=== PATIENT | female | born 1970 | race Caucasian/White ===

== ENCOUNTER 2021-02-26 08:26 | Outpatient (REF) | payer BC, SELFPAY ==
[2021-02-26 11:56] LABS: Hemoglobin 11.6 g/dl (12.0-16.0); Mean Corpuscular HGB Conc 32.2 g/dl (31.0-35.0); Mean Corpuscular Hemoglobin 29.8 pg (27.0-33.0); Mean Corpuscular Volume 92.5 fL (80-98); Mean Platelet Volume 9.3 fL (9.4-12.3); Platelet Count 342 X10*3/uL (160-400); Red Blood Count 3.89 X10*6/uL (4.20-5.50); Red Cell Distribution Width 12.9 % (11.0-16.0); White Blood Count 7.8 X10*3/uL (4.8-10.8)
[2021-02-26 12:42] LABS: Anion Gap 11 (12-20); Blood Urea Nitrogen 13 mg/dL (9-16); Carbon Dioxide 30 mmol/L (22-29); Chloride 101 mmol/L (96-108); Estimated Glomerular Filt Rate > 60; Glucose Random 86 mg/dL (60-115); Potassium 4.4 mmol/L (3.3-5.1); Sodium 138 mmol/L (135-145)
== END 2021-02-26 08:27 | disposition home or self-care (01) ==
LOC: HO.HMGCLDS 08:26
PROVIDERS: PCP Internal Medicine; Visit Provider Internal Medicine
DX: Z00.00 Encounter for general adult medical examination without abnormal findings (principal)
CPT/HCPCS: 36415; 80048; 85027

== ENCOUNTER → 2021-03-19 12:57 | Outpatient (REF) | payer BC, SELFPAY ==
--- NOTE | 2021-03-19 13:01 | ECG_ITS ---
Hook-up date: 2021-03-19 13:11:00 Duration: 47:59:00 Test Indications: PALPITATIONS Medications: [id number] QRS complexes * Ventricular ectopics which represent % of total QRS comp. 2 Supraventricular ectopics which represent <1 % of total QRS comp. * Paced QRS complexs which represent % of total QRS comp. VENTRICULAR ECTOPY * Isolated * Bigeminal Cycles * Couplets * Runs * Beats in Runs * Beats LONGEST at * BPM at :: -- * Beats FASTEST at * BPM at :: -- SUPRAVENTRICULAR ECTOPY 2 Isolated 0 Couplets 0 Runs 0 Beats in Runs * Beats LONGEST at * BPM at :: -- * Beats FASTEST at * BPM at :: -- HEART RATES 61 MIN at 03:24:13 2021-03-20 88 AVG 143 MAX at 10:06:31 2021-03-20 LONGEST RR 1.0000 secs at 03:24:14 2021-03-20 S-T LEVELS Channel 1 - 128 mm at 13:11:00 2021-03-19 - 128 mm at 13:11:00 2021-03-19 Channel 2 - 128 mm at 13:11:00 2021-03-19 - 128 mm at 13:11:00 2021-03-19 Channel 3 - 128 mm at 03:23:01 -- - 128 mm at 03:23:01 Underlying rhythm is sinus; Average ventricular rate 88/min; range 61-143/min; About 28% of the time, rate>100/min (sinus tachycardia); No significant arrhythmias; Patient did not report any symptoms in the diary Referred By: Mariangel White Overread By: JAY VELASQUEZ
== END ==
LOC: HO.CARD 12:57
PROVIDERS: PCP Internal Medicine; Visit Provider Internal Medicine
DX: R00.2 Palpitations (principal)
CPT/HCPCS: 93225; 93226

== ENCOUNTER → 2022-11-03 09:15 | Outpatient (BNVA) | payer BC, SELFPAY | PROVIDERS: PCP Physician Assistant Medical; Visit Provider Hospitalist ==

== ENCOUNTER 2023-03-30 08:19 | Outpatient (REF) | payer BC, SELFPAY ==
--- NOTE | 2023-03-30 09:01 | PFT_ITS ---
Forced vital capacity 85%, FEV1 89%, FEV1/FVC ratio is 82. KHO08-10 104%, and MVV is 81%. Post bronchodilator therapy there is actually much decrease in the flow volumes. Total lung capacity 87%. Residual volume 100%. Diffusion capacity 84% CONCLUSION: Baseline test shows normal spirometry, and there is no evidence of any obstructive airway disorder. Lung volumes are also normal and diffusion capacity is normal. There is a negative response to bronchodilator therapy. This needs to be correlated with clinical picture. MD WILMER Campbell/MODSrinivas / [phone]
== END 2023-03-30 08:20 | disposition home or self-care (01) ==
LOC: HO.RESP 08:19
PROVIDERS: PCP Physician Assistant Medical; Visit Provider Hospitalist
DX: R91.8 Other nonspecific abnormal finding of lung field (principal)
CPT/HCPCS: 94010; 94727; 94729

== ENCOUNTER → 2023-03-30 09:01 | Outpatient (BNV) | payer BC, SELFPAY | PROVIDERS: PCP Physician Assistant Medical; Visit Provider Internal Medicine | DX: R91.8 Other nonspecific abnormal finding of lung field (principal) | CPT/HCPCS: 94060; 94727; 94729 ==

== ENCOUNTER 2023-04-17 14:02 | Outpatient (AMB) | payer BC, SELFPAY ==
[2023-04-17 14:02] VITALS: BMI 23.5
--- NOTE | 2023-04-17 14:02 | MHC.OFFVIS ---
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 After COVID she started developing worsening respiratory symptoms with chest tightness and cough. She had imaging studies at some point demonstrating evidence of peribronchial coughing and bronchitis. The patient recovered from that in and then again in January 2022 she developed COVID again. Similar symptoms occurred. She started using inhalers. Then, in July 2022 the patient developed another upper respiratory illness although was not COVID. Resulting increasing chest tightness having to use inhalers. She did have imaging studies at [facility] initially demonstrating hazy nodular opacity. I personally reviewed that image. She then had a CT scan of the chest done demonstrating calcified pulmonary nodules consistent with granulomas about 5 mm in size. No evidence of any peribronchial coughing a bronchitis or any other changes based on the report. I did request that she can bring me a copy of the CD so I can not review the images. In view of the size of the nodules is more appropriate for her to get a CT scan follow-up in a year's time. She she does have allergy symptoms including postnasal drip and likely has atopy with allergic rhinitis, eczema and likely mild intermittent asthma. The patient does have a rescue inhaler. She does not need any maintenance therapies right now. She is already did not Singulair although she has been taking it regularly and she has also continue with her nasal therapy. Therefore she can continue with her current therapies will follow-up in the fall with PFTs. Hopefully have looked at her images by then and will decide if she needs a CT scan in the fall or if he can not wait to the spring. 04/17/2023 the patient has a telehealth visit today. Overall the patient is doing better. Her allergies have subsided and she is been able to deescalate her respiratory and allergy medicines. She did take a trip to [place] over the summer and she did have some increased respiratory symptoms while dealing with a viral syndrome. She is still having some GI sequela symptoms. She did not test to see if she had COVID. We did review her pulmonary function studies. It appears that her post bronchodilator numbers are significantly worse. Will go ahead and repeat that based on the fact that it does not go along with her history. In regards of her CT scan the patient does have a small 5 mm pulmonary nodule that will require a follow-up in August. will follow-up with her after that CT scan to review together. Otherwise, the patient can always call if any new issues arise. [facility] Medical History (Updated 04/17/23 @ 22:00 by Jayant Owusu MD) Chronic allergic rhinitis Pulmonary nodules Atopy Reactive airway disease Hallux limitus of left foot Palpitations Mammogram normal Normal Pap smear Vitamin D deficiency Liver mass Chronic pelvic pain in female Chronic anxiety Annual physical exam Surgical History H/O colonoscopy Family History Father No problems noted. Mother No problems noted. Social History Housing: House Alcohol intake: current Alcohol intake frequency: holidays/special occasions only Patient Tobacco Use Status: Never used Tobacco e-Cigarette/Vaping Use: Never Used Second Hand Smoke Exposure: No service: No Current occupational status: unemployed Review of Systems Const Denies fatigue and Denies fever(s) Eyes Reports no additional complaints ENT Denies nasal congestion, Denies nasal discharge and Denies post nasal drip Card Denies chest pain Resp Reports cough and Denies wheezing GI Reports no additional complaints Musc Reports no additional complaints Skin/Breast Reports rash Neuro Reports no additional complaints Endo Denies fatigue Jameson/Lymph Denies lymphadenopathy Aller/Immun Denies wheezing Physical Exam Vital Signs: BMI result Body Mass Index 23.5 Const General: comfortable Orientation/consciousness: patient oriented x3 Resp Effort & Inspection: able to speak in complete sentences Neuro General: patient oriented x3 Assessment & Plan Assessment & Plan (1) Reactive airway disease: Code(s): J45.909 - Unspecified asthma, uncomplicated Qualifiers: Asthma severity: mild Asthma persistence: intermittent Asthma complication type: uncomplicated Qualified Code(s): J45.20 - Mild intermittent asthma, uncomplicated (2) Atopy: Code(s): Z88.9 - Allergy status to unspecified drugs, medicaments and biological substances (3) Pulmonary nodules: Code(s): R91.8 - Other nonspecific abnormal finding of lung field (4) Chronic allergic rhinitis: Code(s): J30.9 - Allergic rhinitis, unspecified Plan RUBIO as needed fluticasone nasal spray AM Neti bottle PM as needed Zyrtec as needed Singulair PM seasonally PFTs, will repeat spirometry CT chest 09/2023 F/U 09/2023 Telehealth Telehealth Location of provider rendering services: practice address Location of patient: address on file Patient Identification confirmed using: Name, : Yes Telehealth method: voice only Patient verbally consented to treatment: Yes Patient verbally consented to billing insurance company: Yes Patient informed of any privacy concerns related to visit: Yes Coding Level of Care Code Tele Est Pt Level 4 (39874) Diagnoses Mild intermittent reactive airway disease without complication J45.20 Asthma severity: mild Asthma persistence: intermittent Asthma complication type: uncomplicated Atopy Z88.9 Pulmonary nodules R91.8 Chronic allergic rhinitis J30.9 Time Spent (min) 15
== END 2023-04-17 14:33 | disposition home or self-care (01) ==
LOC: HO.HPS 14:02
PROVIDERS: PCP Physician Assistant Medical; Visit Provider Hospitalist
DX: J45.20 Mild intermittent asthma, uncomplicated (principal); Z88.9 Allergy status to unspecified drugs, medicaments and biological substances; R91.8 Other nonspecific abnormal finding of lung field
CPT/HCPCS: 99442

== ENCOUNTER → 2023-04-17 14:02 | Outpatient (BNVA) | payer BC, SELFPAY | PROVIDERS: PCP Physician Assistant Medical; Visit Provider Hospitalist ==

== ENCOUNTER 2023-08-28 07:21 | Outpatient (REF) | payer BC, SELFPAY ==
--- NOTE | ~2023-08-28 | CT_ITS ---
EXAMINATION: CT CHEST WITHOUT CONTRAST CLINICAL INFORMATION: Pulmonary nodule. COMPARISON: Chest x-ray 01/08/2020. TECHNIQUE: Multidetector volumetric CT imaging of the chest was done. Axial MIP volume rendering provided. Sagittal and coronal reformatted images were obtained. This CT examination was performed using dose optimization techniques as appropriate, variously including the following: *Automated exposure control *Adjustment of mA and/or kV according to patient size (this includes techniques or standardized protocols for targeted exams where dose is matched to indication/reason for exam; i.e. extremities or head) *Use of iterative reconstruction technique DLP: 133 mGy-cm FINDINGS: PERIODONTAL ASSISTANT: Well-expanded lungs. LUNGS: The lungs are well expanded and clear of acute pneumonic process. There is a calcified 2 mm nodule left lower lobe axial image 30/4, punctate 1 mm calcified nodules right lower lobe axial image 287/5, noncalcified 4 mm nodule left lower lobe axial image 365/5, 4 mm nodule right upper lobe axial image 144/5. MEDIASTINUM: The thyroid lobes are symmetric and normal. The central trachea and the bronchi are widely patent. The heart size and great vessels are normal caliber. CORONARY ARTERY CALCIFICATION: None visualized on this study. PLEURA: There is no pleural effusion. No pleural mass or thickening. AXILLA: No lymphadenopathy. UPPER ABDOMEN: Visualized liver, spleen, pancreas, and bilateral adrenal glands are unremarkable OSSEOUS STRUCTURES: No aggressive lytic or sclerotic process seen. There is mild ventral spondylosis mid and lower dorsal spine. CT/CT chest wo IV con IMPRESSION: 1. Multiple calcified and noncalcified pulmonary nodules. The two 4 mm pulmonary nodules in the right upper lobe and left lower lobe are stable. No new pulmonary nodules seen. 2. No abnormal mediastinal or axillary lymphadenopathy seen. 3. No acute consolidation or mass seen. Fleischner guidelines were followed.
== END 2023-08-28 07:22 | disposition home or self-care (01) ==
LOC: HO.CT 07:21
PROVIDERS: PCP Physician Assistant Medical; Visit Provider Hospitalist
DX: R91.8 Other nonspecific abnormal finding of lung field (principal)
CPT/HCPCS: 71250

== ENCOUNTER 2023-09-18 14:03 | Outpatient (AMB) | payer BC, SELFPAY ==
[2023-09-18 14:38] VITALS: PULSE 84; O2SAT 98; BMI 25.1
--- NOTE | 2023-09-18 14:38 | MHC.OFFVIS ---
Intake Vital Signs 09/18/23 14:38 Height 5 ft 4 in Weight 146 lb BMI 25.1 Pulse 84 Pulse Source Pulse Oximeter Pulse Oximetry (%) 98 Oxygen Delivery Method Room Air Intake Visit Reasons: Pulmonary Nodule Follow Up Import And Export Clerk Required: No Allergies amoxicillin [Augmentin] Allergy (Unknown, Verified 09/18/23 14:39) rash clavulanic acid [Augmentin] Allergy (Unknown, Verified 09/18/23 14:39) rash HPI HPI Comments History of Present Illness Details The patient is a 53 year woman previously healthy until back in 2019 she developed COVID-19. After COVID she started developing worsening respiratory symptoms with chest tightness and cough. She had imaging studies at some point demonstrating evidence of peribronchial coughing and bronchitis. The patient recovered from that in and then again in January 2022 she developed COVID again. Similar symptoms occurred. She started using inhalers. Then, in July 2022 the patient developed another upper respiratory illness although was not COVID. Resulting increasing chest tightness having to use inhalers. She did have imaging studies at [facility] initially demonstrating hazy nodular opacity. I personally reviewed that image. She then had a CT scan of the chest done demonstrating calcified pulmonary nodules consistent with granulomas about 5 mm in size. No evidence of any peribronchial coughing a bronchitis or any other changes based on the report. I did request that she can bring me a copy of the CD so I can not review the images. In view of the size of the nodules is more appropriate for her to get a CT scan follow-up in a year's time. She she does have allergy symptoms including postnasal drip and likely has atopy with allergic rhinitis, eczema and likely mild intermittent asthma. The patient does have a rescue inhaler. She does not need any maintenance therapies right now. She is already did not Singulair although she has been taking it regularly and she has also continue with her nasal therapy. Therefore she can continue with her current therapies will follow-up in the fall with PFTs. Hopefully have looked at her images by then and will decide if she needs a CT scan in the fall or if he can not wait to the spring. 04/17/2023 the patient has a telehealth visit today. Overall the patient is doing better. Her allergies have subsided and she is been able to deescalate her respiratory and allergy medicines. She did take a trip to [place] over the summer and she did have some increased respiratory symptoms while dealing with a viral syndrome. She is still having some GI sequela symptoms. She did not test to see if she had COVID. We did review her pulmonary function studies. It appears that her post bronchodilator numbers are significantly worse. Will go ahead and repeat that based on the fact that it does not go along with her history. In regards of her CT scan the patient does have a small 5 mm pulmonary nodule that will require a follow-up in August. will follow-up with her after that CT scan to review together. Otherwise, the patient can always call if any new issues arise. 09/18/2023 the patient is here for a pulmonary follow-up visit. Overall the patient has been doing well. Now that the seasons transitioning to the spring she is developing increasing allergy symptoms. The patient does have a rescue inhaler although she does not use it often Dupixent less than once a week. The patient did respond previously well to singular. Therefore will go ahead and send her the Singulair that she can use seasonally. Specially since spring is whenever were seasons. In addition to that she did have a CT scan of the chest to follow-up with the pulmonary nodules. I did personally review. I did measure her pulmonary nodules in a documented that to the nodules are actually measuring 6 mm in size. One of the nodules is hazy in appearance. We did look at the report from her previous CT scan from [facility] demonstrating that the nodules were only about 5 mm in size. In view of the interval increase in the pulmonary nodules will go ahead and repeat her CT scan in 6 months. If the patient develops any worsening symptoms prior to that she will call for an earlier assessment. [facility] Medical History (Updated 04/17/23 @ 22:00 by Jayant Owusu MD) Chronic allergic rhinitis Pulmonary nodules Atopy Reactive airway disease Hallux limitus of left foot Palpitations Mammogram normal Normal Pap smear Vitamin D deficiency Liver mass Chronic pelvic pain in female Chronic anxiety Annual physical exam Surgical History H/O colonoscopy Family History Father No problems noted. Mother No problems noted. Social History Housing: House Alcohol intake: current Alcohol intake frequency: holidays/special occasions only Patient Tobacco Use Status: Never used Tobacco e-Cigarette/Vaping Use: Never Used Second Hand Smoke Exposure: No service: No Current occupational status: unemployed Review of Systems Const Denies fatigue and Denies fever(s) Eyes Reports no additional complaints ENT Denies nasal congestion, Denies nasal discharge and Denies post nasal drip Card Denies chest pain Resp Reports cough and Denies wheezing GI Reports no additional complaints Musc Reports no additional complaints Skin/Breast Reports rash Neuro Reports no additional complaints Endo Denies fatigue Jameson/Lymph Denies lymphadenopathy Aller/Immun Denies wheezing Physical Exam Vital Signs: Last Vital Signs Pulse 84 09/18/23 14:38 Pulse Ox 98 09/18/23 14:38 Oxygen Delivery Method Room Air 09/18/23 14:38 BMI result Body Mass Index 25.1 Const General: comfortable HEENT Head: Yes normocephalic Neck Neck: Yes supple Chest Chest palpation & inspection: normal inspection of the chest Resp Effort & Inspection: normal respiratory effort Auscultation: clear to auscultation bilaterally and no wheezes Cardio Rate: regular rate Rhythm: regular rhythm Heart sounds: S1 normal heart sound present and S2 normal heart sound present GI Palpation (GI): Soft to palpation Skin General skin exam: no rashes or lesions noted Extrem General: Yes no clubbing, cyanosis or edema Results Reviewed Results Reviewed: [address] [address] [address] Scan Report Signed Patient: Rosita Vasquez MR#: [id number] : 1970 Acct:[id number] Age/Sex: 53 / F ADM Date: 08/28/23 Loc: HO.CT Attending Dr: Jayant Owusu MD Ordering Physician: Jayant Owusu MD Date of Service: 08/28/23 Procedure(s): CT chest wo IV con Accession Number(s): [id number] cc: Susie Duarte PA-C; Jayant Owusu MD~ EXAMINATION: CT CHEST WITHOUT CONTRAST CLINICAL INFORMATION: Pulmonary nodule. COMPARISON: Chest x-ray 01/08/2020. TECHNIQUE: Multidetector volumetric CT imaging of the chest was done. Axial MIP volume rendering provided. Sagittal and coronal reformatted images were obtained. This CT examination was performed using dose optimization techniques as appropriate, variously including the following: *Automated exposure control *Adjustment of mA and/or kV according to patient size (this includes techniques or standardized protocols for targeted exams where dose is matched to indication/reason for exam; i.e. extremities or head) *Use of iterative reconstruction technique DLP: 133 mGy-cm FINDINGS: ORACLE DEVELOPER: Well-expanded lungs. LUNGS: The lungs are well expanded and clear of acute pneumonic process. There is a calcified 2 mm nodule left lower lobe axial image 30/4, punctate 1 mm calcified nodules right lower lobe axial image 287/5, noncalcified 4 mm nodule left lower lobe axial image 365/5, 4 mm nodule right upper lobe axial image 144/5. MEDIASTINUM: The thyroid lobes are symmetric and normal. The central trachea and the bronchi are widely patent. The heart size and great vessels are normal caliber. CORONARY ARTERY CALCIFICATION: None visualized on this study. PLEURA: There is no pleural effusion. No pleural mass or thickening. AXILLA: No lymphadenopathy. UPPER ABDOMEN: Visualized liver, spleen, pancreas, and bilateral adrenal glands are unremarkable OSSEOUS STRUCTURES: No aggressive lytic or sclerotic process seen. There is mild ventral spondylosis mid and lower dorsal spine. CT/CT chest wo IV con IMPRESSION: 1. Multiple calcified and noncalcified pulmonary nodules. The two 4 mm pulmonary nodules in the right upper lobe and left lower lobe are stable. No new pulmonary nodules seen. 2. No abnormal mediastinal or axillary lymphadenopathy seen. 3. No acute consolidation or mass seen. Fleischner guidelines were followed. Dictated By: Carlos Palma MD Signed By: <Electronically signed by Carlos Palma MD in OV> 08/29/23 1644 DD/ 0773 TD/TT: Industry Analyst: [facility] [place] Assessment & Plan Assessment & Plan (1) Reactive airway disease: Code(s): J45.909 - Unspecified asthma, uncomplicated Qualifiers: Asthma complication type: uncomplicated Asthma persistence: intermittent Asthma severity: mild Qualified Code(s): J45.20 - Mild intermittent asthma, uncomplicated (2) Atopy: Code(s): Z88.9 - Allergy status to unspecified drugs, medicaments and biological substances (3) Pulmonary nodules: Code(s): R91.8 - Other nonspecific abnormal finding of lung field (4) Chronic allergic rhinitis: Code(s): J30.9 - Allergic rhinitis, unspecified Plan consider FAY as needed for rescue based on abn spirometry response to albuterol fluticasone nasal spray AM Neti bottle PM as needed Zyrtec as needed Singulair PM seasonally PFTs, will repeat spirometry, still with paradoxical response to albuterol CT chest in 6 months in view of enlarging nodules 5 tp 6mm F/U 09/2023 Orders: Orders CT chest wo IV con 6 Months R91.8 - Other nonspecific abnormal finding of lung field Medications: New montelukast (Singulair) 10 mg PO BEDTIME 30 days 30 tabs 11RF J45.909 - Unspecified asthma, uncomplicated Coding Level of Care Code Est Pt Level 4 (12934) Diagnoses Mild intermittent reactive airway disease without complication J45.20 Asthma complication type: uncomplicated Asthma persistence: intermittent Asthma severity: mild Atopy Z88.9 Pulmonary nodules R91.8 Chronic allergic rhinitis J30.9 Time Spent (min) 18
== END 2023-09-18 15:00 | disposition home or self-care (01) ==
PROVIDERS: PCP Physician Assistant Medical; Visit Provider Hospitalist
DX: J45.20 Mild intermittent asthma, uncomplicated (principal); Z88.9 Allergy status to unspecified drugs, medicaments and biological substances; R91.8 Other nonspecific abnormal finding of lung field; J30.9 Allergic rhinitis, unspecified
CPT/HCPCS: 99214

== ENCOUNTER → 2023-09-18 14:03 | Outpatient (BNVA) | payer BC, SELFPAY | PROVIDERS: PCP Physician Assistant Medical; Visit Provider Hospitalist ==

== ENCOUNTER 2024-03-18 09:34 | Outpatient (REF) | payer BC, SELFPAY ==
--- NOTE | ~2024-03-18 | CT_ITS ---
EXAMINATION: CT CHEST WITHOUT CONTRAST CLINICAL INFORMATION: Pulmonary nodules, follow-up COMPARISON: 08/28/2023, 08/02/2019 CT chest. TECHNIQUE: Multidetector volumetric CT imaging of the chest was done. Axial MIP volume rendering provided. Sagittal and coronal reformatted images were obtained. This CT examination was performed using dose optimization techniques as appropriate, variously including the following: *Automated exposure control *Adjustment of mA and/or kV according to patient size (this includes techniques or standardized protocols for targeted exams where dose is matched to indication/reason for exam; i.e. extremities or head) *Use of iterative reconstruction technique DLP: 118 mGy-cm FINDINGS: PULMONARY NODULES: -Stable 1 to 2 mm calcified granulomata present. These are benign. -Stable 4 mm nodule in the anterolateral right upper lobe (series 5, image 157). -Stable average diameter 5 mm nodule lateral left lower lobe, subpleural location (series 5, image 349). -No new or enlarging pulmonary nodules. LUNGS: -The lungs are well expanded and clear. No abnormal opacities. -No pleural or pericardial effusion. -No pneumothorax. -Central and peripheral airways are normal. MEDIASTINUM: The mediastinum is normal. CORONARY ARTERY CALCIFICATION: None visualized on this study. PLEURA: There is no pleural effusion. No pleural mass or thickening. AXILLA/CHEST WALL: No lymphadenopathy. No masses. UPPER ABDOMEN: Normal. OSSEOUS STRUCTURES: -No acute or suspicious osseous abnormality. There is a minimal S-shaped thoracic scoliosis. CT/CT chest wo IV con IMPRESSION: 1. Stable benign pulmonary nodules. No new or enlarging nodule present. 2. A few scattered granulomata, benign and unchanged. 3. No active lung disease. No abnormal lymphadenopathy. 4. Ancillary findings as discussed. Fleischner guidelines were followed. Electronically signed by: David Odell MD 05/24/2024 03:02 PM [facility]
== END 2024-03-18 09:35 | disposition home or self-care (01) ==
LOC: HO.CT 09:34
PROVIDERS: PCP Physician Assistant Medical; Visit Provider Hospitalist
DX: R91.8 Other nonspecific abnormal finding of lung field (principal)
CPT/HCPCS: 71250

== ENCOUNTER → 2024-03-18 09:35 | Outpatient (BNV) | payer BC, SELFPAY | PROVIDERS: PCP Physician Assistant Medical; Visit Provider Radiology Diagnostic Radiology | DX: R91.1 Solitary pulmonary nodule (principal) | CPT/HCPCS: 71250 ==

== ENCOUNTER 2024-03-25 08:23 | Outpatient (AMB) | payer BC, SELFPAY ==
[2024-03-25 08:29] VITALS: BP 116/70; PULSE 82; O2SAT 100; BMI 24.8
--- NOTE | 2024-03-25 08:29 | A.OFFVIS_ITS ---
Vital Signs 03/25/24 08:29 Height 5 ft 4 in Weight 144 lb 6.444 oz BMI 24.8 BP 116/70 Blood Pressure Location Rt brachial Position Sitting Pulse 82 Pulse Source Pulse Oximeter Pulse Oximetry (%) 100 Oxygen Delivery Method Room Air Intake Visit Reasons: Pulmonary Nodule Medical Chemist Required: No Allergies amoxicillin [Augmentin] Allergy (Unknown, Verified 03/25/24 08:32) rash clavulanic acid [Augmentin] Allergy (Unknown, Verified 03/25/24 08:32) rash HPI Comments Details: The patient is a 53 year woman previously healthy until back in 2019 she developed COVID-19. After COVID she started developing worsening respiratory symptoms with chest tightness and cough. She had imaging studies at some point demonstrating evidence of peribronchial coughing and bronchitis. The patient recovered from that in and then again in January 2022 she developed COVID again. Similar symptoms occurred. She started using inhalers. Then, in July 2022 the patient developed another upper respiratory illness although was not COVID. Resulting increasing chest tightness having to use inhalers. Hawk briggs did have imaging studies at [facility] initially demonstrating hazy nodular opacity. I personally reviewed that image. She then had a CT scan of the chest done demonstrating calcified pulmonary nodules consistent with granulomas about 5 mm in size. No evidence of any peribronchial coughing a bronchitis or any other changes based on the report. I did request that she can bring me a copy of the CD so I can not review the images. In view of the size of the nodules is more appropriate for her to get a CT scan follow-up in a year's time. She she does have allergy symptoms including postnasal drip and likely has atopy with allergic rhinitis, eczema and likely mild intermittent asthma. The patient does have a rescue inhaler. She does not need any maintenance therapies right now. She is already did not Singulair although she has been taking it regularly and she has also continue with her nasal therapy. Therefore she can continue with her current therapies will follow-up in the fall with PFTs. Hopefully have looked at her images by then and will decide if she needs a CT scan in the fall or if he can not wait to the spring. 04/17/2023 the patient has a telehealth visit today. Overall the patient is doing better. Her allergies have subsided and she is been able to deescalate her respiratory and allergy medicines. She did take a trip to [place] over the summer and she did have some increased respiratory symptoms while dealing with a viral syndrome. She is still having some GI sequela symptoms. She did not test to see if she had COVID. We did review her pulmonary function studies. It appears that her post bronchodilator numbers are significantly worse. Will go ahead and repeat that based on the fact that it does not go along with her history. In regards of her CT scan the patient does have a small 5 mm pulmonary nodule that will require a follow-up in August. will follow-up with her after that CT scan to review together. Otherwise, the patient can always call if any new issues arise. 09/18/2023 the patient is here for a pulmonary follow-up visit. Overall the patient has been doing well. Now that the seasons transitioning to the spring she is developing increasing allergy symptoms. The patient does have a rescue inhaler although she does not use it often Dupixent less than once a week. The patient did respond previously well to singular. Therefore will go ahead and send her the Singulair that she can use seasonally. Specially since spring is whenever were seasons. In addition to that she did have a CT scan of the chest to follow-up with the pulmonary nodules. I did personally review. I did measure her pulmonary nodules in a documented that to the nodules are actually measuring 6 mm in size. One of the nodules is hazy in appearance. We did look at the report from her previous CT scan from [facility] demonstrating that the nodules were only about 5 mm in size. In view of the interval increase in the pulmonary nodules will go ahead and repeat her CT scan in 6 months. If the patient develops any worsening symptoms prior to that she will call for an earlier assessment. 03/25/2024 the patient is here for a pulmonary follow-up visit. Overall the patient has been doing well. She is recovering from a cold. She did not need any prednisone which is reassuring. She does not use her rescue inhaler because it caused palpitations. She has had some fluttering sensations lately. She is going to get an EKG if her symptoms persist. We did look at her CT scan of the chest that she had back in 03/18/2024. It has not been officially read yet. I did review a compared to the CT scan that she had back in August. She has 1 nodule does resolve in the left upper lobe. All the other nodules are about the same. The left lower lobe nodule still measuring 6-7 mm in size. Does not look any different to me when looking at the thin cuts. Therefore I am here sure that we can follow in a year's time. However, will wait for the final read on the CT scan from Radiology to see if they feel any different. [facility] Medical History (Updated 04/17/23 @ 22:00 by Jayant Owusu MD) Chronic allergic rhinitis Pulmonary nodules Atopy Reactive airway disease Hallux limitus of left foot Palpitations Mammogram normal Normal Pap smear Vitamin D deficiency Liver mass Chronic pelvic pain in female Chronic anxiety Annual physical exam Surgical History H/O colonoscopy Family History Father No problems noted. Mother No problems noted. Social History Housing: House Alcohol intake: current Alcohol intake frequency: holidays/special occasions only Patient Tobacco Use Status: Never used Tobacco e-Cigarette/Vaping Use: Never Used Second Hand Smoke Exposure: No service: No Current occupational status: unemployed Review of Systems Const Denies fatigue and Denies fever(s) Eyes Reports no additional complaints ENT Denies nasal congestion, Denies nasal discharge and Denies post nasal drip Card Denies chest pain Resp Reports cough and Denies wheezing GI Reports no additional complaints Musc Reports no additional complaints Skin/Breast Reports rash Neuro Reports no additional complaints Endo Denies fatigue Jameson/Lymph Denies lymphadenopathy Aller/Immun Denies wheezing Physical Exam Vital Signs: Last Vital Signs Pulse 82 03/25/24 08:29 BP 116/70 03/25/24 08:29 Pulse Ox 100 03/25/24 08:29 Oxygen Delivery Method Room Air 03/25/24 08:29 BMI result Body Mass Index 24.8 Const General: comfortable HEENT Head: Yes normocephalic Neck Neck: Yes supple Chest Chest palpation & inspection: normal inspection of the chest Resp Effort & Inspection: normal respiratory effort Auscultation: clear to auscultation bilaterally and no wheezes Cardio Rate: regular rate Rhythm: regular rhythm Heart sounds: S1 normal heart sound present and S2 normal heart sound present GI Palpation (GI): Soft to palpation Skin General skin exam: no rashes or lesions noted Extrem General: Yes no clubbing, cyanosis or edema Assessment & Plan Assessment & Plan (1) Reactive airway disease: Code(s): J45.909 - Unspecified asthma, uncomplicated Category: Medical Qualifiers: Asthma complication type: uncomplicated Asthma persistence: intermittent Asthma severity: mild Qualified Code(s): J45.20 - Mild intermittent asthma, uncomplicated (2) Atopy: Code(s): Z88.9 - Allergy status to unspecified drugs, medicaments and biological substances Category: Medical (3) Pulmonary nodules: Code(s): R91.8 - Other nonspecific abnormal finding of lung field Category: Medical (4) Chronic allergic rhinitis: Code(s): J30.9 - Allergic rhinitis, unspecified Category: Medical Plan consider FAY as needed for rescue based on abn spirometry response to albuterol fluticasone nasal spray AM Neti bottle PM as needed Zyrtec as needed Singulair PM seasonally CT chest in 1 year F/U 1 yr Orders: Orders CT chest wo IV con 1 Year R91.8 - Other nonspecific abnormal finding of lung field Coding Level of Care Code Est Pt Level 4 (38728) Diagnoses Mild intermittent reactive airway disease without complication J45.20 Asthma complication type: uncomplicated Asthma persistence: intermittent Asthma severity: mild Atopy Z88.9 Pulmonary nodules R91.8 Chronic allergic rhinitis J30.9 Time Spent (min) 17
== END 2024-03-25 08:51 | disposition home or self-care (01) ==
PROVIDERS: PCP Physician Assistant Medical; Visit Provider Hospitalist
DX: J45.20 Mild intermittent asthma, uncomplicated (principal); Z88.9 Allergy status to unspecified drugs, medicaments and biological substances; R91.8 Other nonspecific abnormal finding of lung field; J30.9 Allergic rhinitis, unspecified
CPT/HCPCS: 99214

== ENCOUNTER → 2024-03-25 08:23 | Outpatient (BNVA) | payer BC, SELFPAY | PROVIDERS: PCP Physician Assistant Medical; Visit Provider Hospitalist | DX: R91.8 Other nonspecific abnormal finding of lung field (principal); J45.909 Unspecified asthma, uncomplicated ==

== ENCOUNTER 2025-03-05 07:57 | Outpatient (REF) | payer BC, SELFPAY ==
--- OUTSIDE RECORDS SUMMARY | 2024-08-29 04:15 | XMS_ITS ---
Author Organization [facility] [address] Address [address] [place] [address] Care Team Providers Care Sales Ledger Clerk Name Role Phone LIYAH MESERET Unavailable [phone] Encounters Encounter Location Date Provider Diagnosis [facility] [address] [place] [address] 08/29/2024 MESERET PELLETIER Plan Of Treatment Next Appt Details Provider Name:MESERET PELLETIER, 08/26/2025 09:00:00 AM, [address] , [place], [address], Progress Notes * IRIZARRY, Fabricio:1970 (54 yo F)Acc No.[id number]:08/29/2024 Progress Notes Patient: Rosita PANIAGUA Provider: Srinivas PELLETIER PA-C :1970 A ge:54 Y S ex:Female Date:08/29/2024 Address:[address] [place] [address] [place], [id number] Subjective: * Chief Complaints: * * Medical History: Objective: * Vitals: Assessment: Plan: * Treatment: * Images: Billing Information: * Visit Code: * Procedure Codes: Care Plan Details* * Electronic signature of MELVIN PELLETIER PA-C on 03/05/2025 at 08:02 AM EDT Sign off status: Pending * Provider: Srinivas PELLETIER PA-C Date: 08/29/2024 Generated for Shy asif/Javi/eTransmitting on: 0 03/05/2025 08:02 AM EDT
--- OUTSIDE RECORDS SUMMARY | 2025-02-28 05:00 | XMS_ITS ---
Author Organization [facility] [address] Address [address] [place] [address] Care Team Providers Care Compliance Review Specialist Name Role Phone MESERET PELLETIER Unavailable [phone] Allergies Allergen (clinical drug ingredient) Drug/Non Drug Allergy documented on EMR Reaction Allergy Type Onset Date Status amoxicillin / clavulanate Augmentin rash Drug Allergy Active Eggs or Egg-derived Products Unknown Drug Allergy Active Gluten Gluten Unknown Allergy Active Shellfish (FN) Shellfish-derived Products Unknown Drug Allergy Active REASON FOR VISIT pt here for a CPE with labs. pt stated she had an endoscopy done earlier this year with Dr. Mariangel Frazier Medications Medication SIG (Take, Route, Frequency, Duration) Notes Start Date End Date Status Levothyroxine Sodium 88 MCG TAKE 1 TABLE T BY MOUTH DAILY; Duration: 90 Active clonazePAM 1 MG 1 tablet Orally twic e daily Active Vitamin D3 125 MCG (5000 UT) 1 tablet Or ally every other day Active [place] 3 1000 MG 1 capsule Orally Mon-Mon Active Vitamin C 500 MG 1 tablet Orally Once a day Active Multi Complete - as directed Orally o nce daily Active Cortisol Active Escitalopram Oxalate 20 MG 1 tablet Oral ly Once a day Active Magnesium 200 MG 3 daily Orally Once a day Active Pregnenolone 50 MG as directed Orally t wice a day Active Problems Problem Type SNOMED Code ICD Code Onset Dates Problem Status W/U Status Risk Notes Problem Solitary nodule of lung (696268254) Lung nodule (R91.1) Active confirmed Vital Signs Blood pressure systolic 102 mm Hg 02/29/20 25 Blood pressure diastolic 64 mm Hg 025 Heart Rate 81 /min 02/28/2025 Height 64 in 02/28/2025 Weight 139.6 lbs 02/28/2025 BMI 23.96 kg/m2 02/28/2025 Oximetry 95 % 02/28/2025 Encounters Encounter Location Date Provider Diagnosis [facility] [address] [place] [address] 02/28/2025 MESERET PELLETIER General medical exam Z00.00 ; Anxiety F41.9 ; Hypothyroidism, unspecified type E03.9 ; Depression, unspecified depression type F32.A ; Hyperlipidemia, mild E78.5 ; Encounter for examination of blood pressure without abnormal findings Z01.30 ; URI with cough and congestion J06.9 and Impacted cerumen of left ear H61.22 Assessments Encounter Date Diagnosis (ICD Code) Assessment Notes Treatment Notes Treatment Clinical Notes Section Notes 02/28/2025 General medical exam (ICD-10 - Z00.00) Shagufta is a 52 yo female pt with a pmhx of anxiety, hypothyroid, headaches, depression, arthritis of the neck, allergic dermatitis, ovarian failure here for CPE. She is currently not working. 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 #L ear cerumen impaction: Irrigated in office with success # URI. Supportive care. COVID swab neg #Anxiety/Depression: Chronic. She is currently managed on clonazepam and duloxetine. Well managed. She sees a therapist as well as a psychiatrist via telehealth. # Hyperlipidemia. LDL 139. HDL 88. Discussed significance of values. Will reassess in 6 mo. #Hypothyroidism: She was diagnosed when she was 16 and has been on levothyroxine since then. She is concerned she may have Lizet's. # Hx of h pylori. S/p treatment Spring 2023. Resolve sx. Had upper endo with Dr. Frazier # Screenings. Colonscopy 2017 (due again in 10 years). Mammogram January 2024, Pap January 2024. Will need bone density @ 54. Physical Women Patient seen and examined. Comprehensive discussion was done on the following. 1. Nutrition: It is important to follow a healthy diet based on lots of vegetables and legumes and good fat. Avoid processed food and processed carbohydrates. Learn to prepare your own meals. Learn to read labels and avoid high fructose corn syrup, processed chemicals added to increase shelf life and preprepared meals. Avoid fast foods. Learn to eat slowly and plan meals for a week. Try to count calories and be mindful off daily calorie intake. Get into the habit of keeping an eye on your weight by using an appropriate scale. Learn to log exercise and discussed fitness Apps like Wengo which can help keep log off calories taken versus calories burned. Local food should be preferred. Discussed Dirty Dozen Versus Clean Fifteen. Discussed healthy supplements like fish oil, Tumeric, Curcumin, Melatonin, Resveratrol, Probiotics, Vitamin-D, Alpha-Lipoic acid, Vitamin-D and coconut oil. 2. It is important to exercise regularly. Is a good habit to walk at least 30-45 minutes a day. Gentle weightlifting with standard precautions to protect the back. Finding activity like cycling or hiking and get into the habit of engaging in it. Stretching before and after the exercises important. It is also important to contact me if there are any problems like shortness of breath, chest pain, back pain and joint or muscle pain associated with the exercise. 3. Discussed age appropriate screening guidelines. Colonoscopy needs to start at age 50 with stool for occult blood as appropriate. There is a new test that can test for genetic abnormalities in the stool sample. This would not replace a colonoscopy but could be used as a screening tool for patients who do not want a colonoscopy. We discussed the importance of early detection of colon cancer. 4. Discussed current guidelines with respect to breast examination, mammogram and pap smear for early detection of breast and cervical cancer. Patient advised to follow up with these appointments. 5. Discussed safe driving and no use of smart phone while driving 6. Age-appropriate immunizations were discussed. A tetanus booster is needed every 10 years. Flu vaccine is recommended every year just before the start of the flu season. Shingles vaccine is recommended after age 50 but not all insurances cover it. Pneumonia vaccine is given after age 65 unless there are certain comorbidities for which it is started earlier. 7. Diagnostic labs were discussed. These could include CBC CMP and lipids with fasting blood glucose and insulin levels. Vitamin D and hemoglobin A1c testing might be appropriate. Case discussed with collaborating physician Anat Sainz who reviewed the assessment and plan. Chart, medications, labs, vital signs reviewed. Dictation was accomplished with the use of [employer] voice recognition software, prone to medical misidentifications and grammatical errors. This is unintentional and the practitioner does try to identify and correct these, but some could still be present. Please do not hesitate to contact practitioner for clarification. All questions answered to patients satisfaction. Patient verbalized understanding of diagnosis and treatments explained. To call sooner prior to next visit it any questions/concerns arise. 02/28/2025 Anxiety (ICD-10 - F41.9) Shagufta is a 52 yo female pt with a pmhx of anxiety, hypothyroid, headaches, depression, arthritis of the neck, allergic dermatitis, ovarian failure here for CPE. She is currently not working. 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 #L ear cerumen impaction: Irrigated in office with success # URI. Supportive care. COVID swab neg #Anxiety/Depression: Chronic. She is currently managed on clonazepam and duloxetine. Well managed. She sees a therapist as well as a psychiatrist via telehealth. # Hyperlipidemia. LDL 139. HDL 88. Discussed significance of values. Will reassess in 6 mo. #Hypothyroidism: She was diagnosed when she was 16 and has been on levothyroxine since then. She is concerned she may have Lizet's. # Hx of h pylori. S/p treatment Spring 2023. Resolve sx. Had upper endo with Dr. Frazier # Screenings. Colonscopy 2017 (due again in 10 years). Mammogram January 2024, Pap January 2024. Will need bone density @ 54. Physical Women Patient seen and examined. Comprehensive discussion was done on the following. 1. Nutrition: It is important to follow a healthy diet based on lots of vegetables and legumes and good fat. Avoid processed food and processed carbohydrates. Learn to prepare your own meals. Learn to read labels and avoid high fructose corn syrup, processed chemicals added to increase shelf life and preprepared meals. Avoid fast foods. Learn to eat slowly and plan meals for a week. Try to count calories and be mindful off daily calorie intake. Get into the habit of keeping an eye on your weight by using an appropriate scale. Learn to log exercise and discussed fitness Apps like Wengo which can help keep log off calories taken versus calories burned. Local food should be preferred. Discussed Dirty Dozen Versus Clean Fifteen. Discussed healthy supplements like fish oil, Tumeric, Curcumin, Melatonin, Resveratrol, Probiotics, Vitamin-D, Alpha-Lipoic acid, Vitamin-D and coconut oil. 2. It is important to exercise regularly. Is a good habit to walk at least 30-45 minutes a day. Gentle weightlifting with standard precautions to protect the back. Finding activity like cycling or hiking and get into the habit of engaging in it. Stretching before and after the exercises important. It is also important to contact me if there are any problems like shortness of breath, chest pain, back pain and joint or muscle pain associated with the exercise. 3. Discussed age appropriate screening guidelines. Colonoscopy needs to start at age 50 with stool for occult blood as appropriate. There is a new test that can test for genetic abnormalities in the stool sample. This would not replace a colonoscopy but could be used as a screening tool for patients who do not want a colonoscopy. We discussed the importance of early detection of colon cancer. 4. Discussed current guidelines with respect to breast examination, mammogram and pap smear for early detection of breast and cervical cancer. Patient advised to follow up with these appointments. 5. Discussed safe driving and no use of smart phone while driving 6. Age-appropriate immunizations were discussed. A tetanus booster is needed every 10 years. Flu vaccine is recommended every year just before the start of the flu season. Shingles vaccine is recommended after age 50 but not all insurances cover it. Pneumonia vaccine is given after age 65 unless there are certain comorbidities for which it is started earlier. 7. Diagnostic labs were discussed. These could include CBC CMP and lipids with fasting blood glucose and insulin levels. Vitamin D and hemoglobin A1c testing might be appropriate. Case discussed with collaborating physician Anat Sainz who reviewed the assessment and plan. Chart, medications, labs, vital signs reviewed. Dictation was accomplished with the use of [employer] voice recognition software, prone to medical misidentifications and grammatical errors. This is unintentional and the practitioner does try to identify and correct these, but some could still be present. Please do not hesitate to contact practitioner for clarification. All questions answered to patients satisfaction. Patient verbalized understanding of diagnosis and treatments explained. To call sooner prior to next visit it any questions/concerns arise. 02/28/2025 Hypothyroidism , unspecified type (ICD-10 - E03.9) Shagufta is a 52 yo female pt with a pmhx of anxiety, hypothyroid, headaches, depression, arthritis of the neck, allergic dermatitis, ovarian failure here for CPE. She is currently not working. 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 #L ear cerumen impaction: Irrigated in office with success # URI. Supportive care. COVID swab neg #Anxiety/Depression: Chronic. She is currently managed on clonazepam and duloxetine. Well managed. She sees a therapist as well as a psychiatrist via telehealth. # Hyperlipidemia. LDL 139. HDL 88. Discussed significance of values. Will reassess in 6 mo. #Hypothyroidism: She was diagnosed when she was 16 and has been on levothyroxine since then. She is concerned she may have Lizet's. # Hx of h pylori. S/p treatment Spring 2023. Resolve sx. Had upper endo with Dr. Frazier # Screenings. Colonscopy 2017 (due again in 10 years). Mammogram January 2024, Pap January 2024. Will need bone density @ 54. Physical Women Patient seen and examined. Comprehensive discussion was done on the following. 1. Nutrition: It is important to follow a healthy diet based on lots of vegetables and legumes and good fat. Avoid processed food and processed carbohydrates. Learn to prepare your own meals. Learn to read labels and avoid high fructose corn syrup, processed chemicals added to increase shelf life and preprepared meals. Avoid fast foods. Learn to eat slowly and plan meals for a week. Try to count calories and be mindful off daily calorie intake. Get into the habit of keeping an eye on your weight by using an appropriate scale. Learn to log exercise and discussed fitness Apps like Wengo which can help keep log off calories taken versus calories burned. Local food should be preferred. Discussed Dirty Dozen Versus Clean Fifteen. Discussed healthy supplements like fish oil, Tumeric, Curcumin, Melatonin, Resveratrol, Probiotics, Vitamin-D, Alpha-Lipoic acid, Vitamin-D and coconut oil. 2. It is important to exercise regularly. Is a good habit to walk at least 30-45 minutes a day. Gentle weightlifting with standard precautions to protect the back. Finding activity like cycling or hiking and get into the habit of engaging in it. Stretching before and after the exercises important. It is also important to contact me if there are any problems like shortness of breath, chest pain, back pain and joint or muscle pain associated with the exercise. 3. Discussed age appropriate screening guidelines. Colonoscopy needs to start at age 50 with stool for occult blood as appropriate. There is a new test that can test for genetic abnormalities in the stool sample. This would not replace a colonoscopy but could be used as a screening tool for patients who do not want a colonoscopy. We discussed the importance of early detection of colon cancer. 4. Discussed current guidelines with respect to breast examination, mammogram and pap smear for early detection of breast and cervical cancer. Patient advised to follow up with these appointments. 5. Discussed safe driving and no use of smart phone while driving 6. Age-appropriate immunizations were discussed. A tetanus booster is needed every 10 years. Flu vaccine is recommended every year just before the start of the flu season. Shingles vaccine is recommended after age 50 but not all insurances cover it. Pneumonia vaccine is given after age 65 unless there are certain comorbidities for which it is started earlier. 7. Diagnostic labs were discussed. These could include CBC CMP and lipids with fasting blood glucose and insulin levels. Vitamin D and hemoglobin A1c testing might be appropriate. Case discussed with collaborating physician Anat Sainz who reviewed the assessment and plan. Chart, medications, labs, vital signs reviewed. Dictation was accomplished with the use of [employer] voice recognition software, prone to medical misidentifications and grammatical errors. This is unintentional and the practitioner does try to identify and correct these, but some could still be present. Please do not hesitate to contact practitioner for clarification. All questions answered to patients satisfaction. Patient verbalized understanding of diagnosis and treatments explained. To call sooner prior to next visit it any questions/concerns arise. 02/28/2025 Depression, unspecified depression type (ICD-10 - F32.A) Shagufta is a 52 yo female pt with a pmhx of anxiety, hypothyroid, headaches, depression, arthritis of the neck, allergic dermatitis, ovarian failure here for CPE. She is currently not working. 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 #L ear cerumen impaction: Irrigated in office with success # URI. Supportive care. COVID swab neg #Anxiety/Depression: Chronic. She is currently managed on clonazepam and duloxetine. Well managed. She sees a therapist as well as a psychiatrist via telehealth. # Hyperlipidemia. LDL 139. HDL 88. Discussed significance of values. Will reassess in 6 mo. #Hypothyroidism: She was diagnosed when she was 16 and has been on levothyroxine since then. She is concerned she may have Lizet's. # Hx of h pylori. S/p treatment Spring 2023. Resolve sx. Had upper endo with Dr. Frazier # Screenings. Colonscopy 2017 (due again in 10 years). Mammogram January 2024, Pap January 2024. Will need bone density @ 54. Physical Women Patient seen and examined. Comprehensive discussion was done on the following. 1. Nutrition: It is important to follow a healthy diet based on lots of vegetables and legumes and good fat. Avoid processed food and processed carbohydrates. Learn to prepare your own meals. Learn to read labels and avoid high fructose corn syrup, processed chemicals added to increase shelf life and preprepared meals. Avoid fast foods. Learn to eat slowly and plan meals for a week. Try to count calories and be mindful off daily calorie intake. Get into the habit of keeping an eye on your weight by using an appropriate scale. Learn to log exercise and discussed fitness Apps like Wengo which can help keep log off calories taken versus calories burned. Local food should be preferred. Discussed Dirty Dozen Versus Clean Fifteen. Discussed healthy supplements like fish oil, Tumeric, Curcumin, Melatonin, Resveratrol, Probiotics, Vitamin-D, Alpha-Lipoic acid, Vitamin-D and coconut oil. 2. It is important to exercise regularly. Is a good habit to walk at least 30-45 minutes a day. Gentle weightlifting with standard precautions to protect the back. Finding activity like cycling or hiking and get into the habit of engaging in it. Stretching before and after the exercises important. It is also important to contact me if there are any problems like shortness of breath, chest pain, back pain and joint or muscle pain associated with the exercise. 3. Discussed age appropriate screening guidelines. Colonoscopy needs to start at age 50 with stool for occult blood as appropriate. There is a new test that can test for genetic abnormalities in the stool sample. This would not replace a colonoscopy but could be used as a screening tool for patients who do not want a colonoscopy. We discussed the importance of early detection of colon cancer. 4. Discussed current guidelines with respect to breast examination, mammogram and pap smear for early detection of breast and cervical cancer. Patient advised to follow up with these appointments. 5. Discussed safe driving and no use of smart phone while driving 6. Age-appropriate immunizations were discussed. A tetanus booster is needed every 10 years. Flu vaccine is recommended every year just before the start of the flu season. Shingles vaccine is recommended after age 50 but not all insurances cover it. Pneumonia vaccine is given after age 65 unless there are certain comorbidities for which it is started earlier. 7. Diagnostic labs were discussed. These could include CBC CMP and lipids with fasting blood glucose and insulin levels. Vitamin D and hemoglobin A1c testing might be appropriate. Case discussed with collaborating physician Anat Sainz who reviewed the assessment and plan. Chart, medications, labs, vital signs reviewed. Dictation was accomplished with the use of [employer] voice recognition software, prone to medical misidentifications and grammatical errors. This is unintentional and the practitioner does try to identify and correct these, but some could still be present. Please do not hesitate to contact practitioner for clarification. All questions answered to patients satisfaction. Patient verbalized understanding of diagnosis and treatments explained. To call sooner prior to next visit it any questions/concerns arise. 02/28/2025 Hyperlipidemia , mild (ICD-10 - E78.5) Shagufta is a 52 yo female pt with a pmhx of anxiety, hypothyroid, headaches, depression, arthritis of the neck, allergic dermatitis, ovarian failure here for CPE. She is currently not working. 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 #L ear cerumen impaction: Irrigated in office with success # URI. Supportive care. COVID swab neg #Anxiety/Depression: Chronic. She is currently managed on clonazepam and duloxetine. Well managed. She sees a therapist as well as a psychiatrist via telehealth. # Hyperlipidemia. LDL 139. HDL 88. Discussed significance of values. Will reassess in 6 mo. #Hypothyroidism: She was diagnosed when she was 16 and has been on levothyroxine since then. She is concerned she may have Lizet's. # Hx of h pylori. S/p treatment Spring 2023. Resolve sx. Had upper endo with Dr. Frazier # Screenings. Colonscopy 2017 (due again in 10 years). Mammogram January 2024, Pap January 2024. Will need bone density @ 54. Physical Women Patient seen and examined. Comprehensive discussion was done on the following. 1. Nutrition: It is important to follow a healthy diet based on lots of vegetables and legumes and good fat. Avoid processed food and processed carbohydrates. Learn to prepare your own meals. Learn to read labels and avoid high fructose corn syrup, processed chemicals added to increase shelf life and preprepared meals. Avoid fast foods. Learn to eat slowly and plan meals for a week. Try to count calories and be mindful off daily calorie intake. Get into the habit of keeping an eye on your weight by using an appropriate scale. Learn to log exercise and discussed fitness Apps like Wengo which can help keep log off calories taken versus calories burned. Local food should be preferred. Discussed Dirty Dozen Versus Clean Fifteen. Discussed healthy supplements like fish oil, Tumeric, Curcumin, Melatonin, Resveratrol, Probiotics, Vitamin-D, Alpha-Lipoic acid, Vitamin-D and coconut oil. 2. It is important to exercise regularly. Is a good habit to walk at least 30-45 minutes a day. Gentle weightlifting with standard precautions to protect the back. Finding activity like cycling or hiking and get into the habit of engaging in it. Stretching before and after the exercises important. It is also important to contact me if there are any problems like shortness of breath, chest pain, back pain and joint or muscle pain associated with the exercise. 3. Discussed age appropriate screening guidelines. Colonoscopy needs to start at age 50 with stool for occult blood as appropriate. There is a new test that can test for genetic abnormalities in the stool sample. This would not replace a colonoscopy but could be used as a screening tool for patients who do not want a colonoscopy. We discussed the importance of early detection of colon cancer. 4. Discussed current guidelines with respect to breast examination, mammogram and pap smear for early detection of breast and cervical cancer. Patient advised to follow up with these appointments. 5. Discussed safe driving and no use of smart phone while driving 6. Age-appropriate immunizations were discussed. A tetanus booster is needed every 10 years. Flu vaccine is recommended every year just before the start of the flu season. Shingles vaccine is recommended after age 50 but not all insurances cover it. Pneumonia vaccine is given after age 65 unless there are certain comorbidities for which it is started earlier. 7. Diagnostic labs were discussed. These could include CBC CMP and lipids with fasting blood glucose and insulin levels. Vitamin D and hemoglobin A1c testing might be appropriate. Case discussed with collaborating physician Anat Sainz who reviewed the assessment and plan. Chart, medications, labs, vital signs reviewed. Dictation was accomplished with the use of [employer] voice recognition software, prone to medical misidentifications and grammatical errors. This is unintentional and the practitioner does try to identify and correct these, but some could still be present. Please do not hesitate to contact practitioner for clarification. All questions answered to patients satisfaction. Patient verbalized understanding of diagnosis and treatments explained. To call sooner prior to next visit it any questions/concerns arise. 02/28/2025 Encounter for examination of blood pressure without abnormal findings (ICD-10 - Z01.30) Shagufta is a 52 yo female pt with a pmhx of anxiety, hypothyroid, headaches, depression, arthritis of the neck, allergic dermatitis, ovarian failure here for CPE. She is currently not working. 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 #L ear cerumen impaction: Irrigated in office with success # URI. Supportive care. COVID swab neg #Anxiety/Depression: Chronic. She is currently managed on clonazepam and duloxetine. Well managed. She sees a therapist as well as a psychiatrist via telehealth. # Hyperlipidemia. LDL 139. HDL 88. Discussed significance of values. Will reassess in 6 mo. #Hypothyroidism: She was diagnosed when she was 16 and has been on levothyroxine since then. She is concerned she may have Lizet's. # Hx of h pylori. S/p treatment Spring 2023. Resolve sx. Had upper endo with Dr. Frazier # Screenings. Colonscopy 2017 (due again in 10 years). Mammogram January 2024, Pap January 2024. Will need bone density @ 54. Physical Women Patient seen and examined. Comprehensive discussion was done on the following. 1. Nutrition: It is important to follow a healthy diet based on lots of vegetables and legumes and good fat. Avoid processed food and processed carbohydrates. Learn to prepare your own meals. Learn to read labels and avoid high fructose corn syrup, processed chemicals added to increase shelf life and preprepared meals. Avoid fast foods. Learn to eat slowly and plan meals for a week. Try to count calories and be mindful off daily calorie intake. Get into the habit of keeping an eye on your weight by using an appropriate scale. Learn to log exercise and discussed fitness Apps like Wengo which can help keep log off calories taken versus calories burned. Local food should be preferred. Discussed Dirty Dozen Versus Clean Fifteen. Discussed healthy supplements like fish oil, Tumeric, Curcumin, Melatonin, Resveratrol, Probiotics, Vitamin-D, Alpha-Lipoic acid, Vitamin-D and coconut oil. 2. It is important to exercise regularly. Is a good habit to walk at least 30-45 minutes a day. Gentle weightlifting with standard precautions to protect the back. Finding activity like cycling or hiking and get into the habit of engaging in it. Stretching before and after the exercises important. It is also important to contact me if there are any problems like shortness of breath, chest pain, back pain and joint or muscle pain associated with the exercise. 3. Discussed age appropriate screening guidelines. Colonoscopy needs to start at age 50 with stool for occult blood as appropriate. There is a new test that can test for genetic abnormalities in the stool sample. This would not replace a colonoscopy but could be used as a screening tool for patients who do not want a colonoscopy. We discussed the importance of early detection of colon cancer. 4. Discussed current guidelines with respect to breast examination, mammogram and pap smear for early detection of breast and cervical cancer. Patient advised to follow up with these appointments. 5. Discussed safe driving and no use of smart phone while driving 6. Age-appropriate immunizations were discussed. A tetanus booster is needed every 10 years. Flu vaccine is recommended every year just before the start of the flu season. Shingles vaccine is recommended after age 50 but not all insurances cover it. Pneumonia vaccine is given after age 65 unless there are certain comorbidities for which it is started earlier. 7. Diagnostic labs were discussed. These could include CBC CMP and lipids with fasting blood glucose and insulin levels. Vitamin D and hemoglobin A1c testing might be appropriate. Case discussed with collaborating physician Anat Sainz who reviewed the assessment and plan. Chart, medications, labs, vital signs reviewed. Dictation was accomplished with the use of [employer] voice recognition software, prone to medical misidentifications and grammatical errors. This is unintentional and the practitioner does try to identify and correct these, but some could still be present. Please do not hesitate to contact practitioner for clarification. All questions answered to patients satisfaction. Patient verbalized understanding of diagnosis and treatments explained. To call sooner prior to next visit it any questions/concerns arise. 02/28/2025 URI with cough and congestion (ICD-10 - J06.9) Shagufta is a 52 yo female pt with a pmhx of anxiety, hypothyroid, headaches, depression, arthritis of the neck, allergic dermatitis, ovarian failure here for CPE. She is currently not working. 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 #L ear cerumen impaction: Irrigated in office with success # URI. Supportive care. COVID swab neg #Anxiety/Depression: Chronic. She is currently managed on clonazepam and duloxetine. Well managed. She sees a therapist as well as a psychiatrist via telehealth. # Hyperlipidemia. LDL 139. HDL 88. Discussed significance of values. Will reassess in 6 mo. #Hypothyroidism: She was diagnosed when she was 16 and has been on levothyroxine since then. She is concerned she may have Lizet's. # Hx of h pylori. S/p treatment Spring 2023. Resolve sx. Had upper endo with Dr. Frazier # Screenings. Colonscopy 2017 (due again in 10 years). Mammogram January 2024, Pap January 2024. Will need bone density @ 54. Physical Women Patient seen and examined. Comprehensive discussion was done on the following. 1. Nutrition: It is important to follow a healthy diet based on lots of vegetables and legumes and good fat. Avoid processed food and processed carbohydrates. Learn to prepare your own meals. Learn to read labels and avoid high fructose corn syrup, processed chemicals added to increase shelf life and preprepared meals. Avoid fast foods. Learn to eat slowly and plan meals for a week. Try to count calories and be mindful off daily calorie intake. Get into the habit of keeping an eye on your weight by using an appropriate scale. Learn to log exercise and discussed fitness Apps like Wengo which can help keep log off calories taken versus calories burned. Local food should be preferred. Discussed Dirty Dozen Versus Clean Fifteen. Discussed healthy supplements like fish oil, Tumeric, Curcumin, Melatonin, Resveratrol, Probiotics, Vitamin-D, Alpha-Lipoic acid, Vitamin-D and coconut oil. 2. It is important to exercise regularly. Is a good habit to walk at least 30-45 minutes a day. Gentle weightlifting with standard precautions to protect the back. Finding activity like cycling or hiking and get into the habit of engaging in it. Stretching before and after the exercises important. It is also important to contact me if there are any problems like shortness of breath, chest pain, back pain and joint or muscle pain associated with the exercise. 3. Discussed age appropriate screening guidelines. Colonoscopy needs to start at age 50 with stool for occult blood as appropriate. There is a new test that can test for genetic abnormalities in the stool sample. This would not replace a colonoscopy but could be used as a screening tool for patients who do not want a colonoscopy. We discussed the importance of early detection of colon cancer. 4. Discussed current guidelines with respect to breast examination, mammogram and pap smear for early detection of breast and cervical cancer. Patient advised to follow up with these appointments. 5. Discussed safe driving and no use of smart phone while driving 6. Age-appropriate immunizations were discussed. A tetanus booster is needed every 10 years. Flu vaccine is recommended every year just before the start of the flu season. Shingles vaccine is recommended after age 50 but not all insurances cover it. Pneumonia vaccine is given after age 65 unless there are certain comorbidities for which it is started earlier. 7. Diagnostic labs were discussed. These could include CBC CMP and lipids with fasting blood glucose and insulin levels. Vitamin D and hemoglobin A1c testing might be appropriate. Case discussed with collaborating physician Anat Sainz who reviewed the assessment and plan. Chart, medications, labs, vital signs reviewed. Dictation was accomplished with the use of [employer] voice recognition software, prone to medical misidentifications and grammatical errors. This is unintentional and the practitioner does try to identify and correct these, but some could still be present. Please do not hesitate to contact practitioner for clarification. All questions answered to patients satisfaction. Patient verbalized understanding of diagnosis and treatments explained. To call sooner prior to next visit it any questions/concerns arise. 02/28/2025 Impacted cerumen of left ear (ICD-10 - H61.22) Shagufta is a 52 yo female pt with a pmhx of anxiety, hypothyroid, headaches, depression, arthritis of the neck, allergic dermatitis, ovarian failure here for CPE. She is currently not working. 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 #L ear cerumen impaction: Irrigated in office with success # URI. Supportive care. COVID swab neg #Anxiety/Depression: Chronic. She is currently managed on clonazepam and duloxetine. Well managed. She sees a therapist as well as a psychiatrist via telehealth. # Hyperlipidemia. LDL 139. HDL 88. Discussed significance of values. Will reassess in 6 mo. #Hypothyroidism: She was diagnosed when she was 16 and has been on levothyroxine since then. She is concerned she may have Lizet's. # Hx of h pylori. S/p treatment Spring 2023. Resolve sx. Had upper endo with Dr. Frazier # Screenings. Colonscopy 2017 (due again in 10 years). Mammogram January 2024, Pap January 2024. Will need bone density @ 54. Physical Women Patient seen and examined. Comprehensive discussion was done on the following. 1. Nutrition: It is important to follow a healthy diet based on lots of vegetables and legumes and good fat. Avoid processed food and processed carbohydrates. Learn to prepare your own meals. Learn to read labels and avoid high fructose corn syrup, processed chemicals added to increase shelf life and preprepared meals. Avoid fast foods. Learn to eat slowly and plan meals for a week. Try to count calories and be mindful off daily calorie intake. Get into the habit of keeping an eye on your weight by using an appropriate scale. Learn to log exercise and discussed fitness Apps like Wengo which can help keep log off calories taken versus calories burned. Local food should be preferred. Discussed Dirty Dozen Versus Clean Fifteen. Discussed healthy supplements like fish oil, Tumeric, Curcumin, Melatonin, Resveratrol, Probiotics, Vitamin-D, Alpha-Lipoic acid, Vitamin-D and coconut oil. 2. It is important to exercise regularly. Is a good habit to walk at least 30-45 minutes a day. Gentle weightlifting with standard precautions to protect the back. Finding activity like cycling or hiking and get into the habit of engaging in it. Stretching before and after the exercises important. It is also important to contact me if there are any problems like shortness of breath, chest pain, back pain and joint or muscle pain associated with the exercise. 3. Discussed age appropriate screening guidelines. Colonoscopy needs to start at age 50 with stool for occult blood as appropriate. There is a new test that can test for genetic abnormalities in the stool sample. This would not replace a colonoscopy but could be used as a screening tool for patients who do not want a colonoscopy. We discussed the importance of early detection of colon cancer. 4. Discussed current guidelines with respect to breast examination, mammogram and pap smear for early detection of breast and cervical cancer. Patient advised to follow up with these appointments. 5. Discussed safe driving and no use of smart phone while driving 6. Age-appropriate immunizations were discussed. A tetanus booster is needed every 10 years. Flu vaccine is recommended every year just before the start of the flu season. Shingles vaccine is recommended after age 50 but not all insurances cover it. Pneumonia vaccine is given after age 65 unless there are certain comorbidities for which it is started earlier. 7. Diagnostic labs were discussed. These could include CBC CMP and lipids with fasting blood glucose and insulin levels. Vitamin D and hemoglobin A1c testing might be appropriate. Case discussed with collaborating physician Anat Sainz who reviewed the assessment and plan. Chart, medications, labs, vital signs reviewed. Dictation was accomplished with the use of [employer] voice recognition software, prone to medical misidentifications and grammatical errors. This is unintentional and the practitioner does try to identify and correct these, but some could still be present. Please do not hesitate to contact practitioner for clarification. All questions answered to patients satisfaction. Patient verbalized understanding of diagnosis and treatments explained. To call sooner prior to next visit it any questions/concerns arise. Plan Of Treatment Pending Test Test Name Order Date PPC Rapid Covid/Strep/Flu/RSV 02/28/2025 Next Appt Details Provider Name:MESERET PELLETIER, 08/26/2025 09:00:00 AM, [address] [place], [id number], Progress Notes * VALERIA KvngaDOB:1970 (54 yo F)Acc No.[id number]:02/28/2025 CPE Patient: Rosita PANIAGUA Provider: Srinivas PELLETIER PA-C :1970 A ge:54 Y S ex:Female Date:02/28/2025 Address:[address] [place] [address], [facility] Subjective: * Chief Complaints: * 1 . pt here for a CPE with labs. pt stated she had an endoscopy done earlier this year with Dr. Mariangel Frazier. * HPI: C onstitutional: Rosita is a 54 yo female with a pmhx of Hypothyroidism, unspecified, Anxiety, Headache, History of Helicobacter pylori infection. She presents today for a physical. She has a new concern of having an URI the past month with a cough stuffy nose, sinus pressure and her ears feeling full. She denies any dypnea or fever.Has not seen anyone about it has taken robatoussin few days, tylenol cold, fluticasone. She has an appointment next week with the metal cleaner for a CT and was instructed to get a Chest x-ray prior to important CT scan for next, X-ray schdueled for next week. She also tour her right labrum in which she got a cortisone shot and is followed by ortho for prp. She has trouble falling and staying alseep for year but does not really like taking any sleeping pills. She also feels thirsty often but drinks plenty of water. PHQ-9 is 1. Due to Tdap. UTD otherwise on all screening exams. Having difficulty getting an OBGYN appt. * ROS: C onstitutional: Patient denies any excessive fatigue with exercise, no weight loss, no fever and no night sweats Eyes: No eye discharge, no itching, no redness. Advised the significance of regular eye exams to screen for glaucoma and other eye problems Ear nose throat: No sore throat,+ postnasal drip, runny nose, Sneezing Cardiovascular: No chest pain, no shortness of breath, no dyspnea on exertion, no PND, no orthopnea, no irregular pulse Respiratory: +cough, no hemoptysis, no sputum, no wheezing GI, no diarrhea, no constipation no blood in the stools, no pain associated with eating, no indigestion Genitourinary: No painful urination no hesitancy no blood in the urine Musculoskeletal, no limitations to walking and running, no joint deformity, no joint stiffness, no chronic back pain, no noise with joint movement Integumentary, no new skin rash. No new changes in skin moles Neurological: No history of seizures, memory loss, No language dysfunction, No inability to concentrate, no localized weakness, no sensation loss, no confusion Psychiatric: No depression, no suicidal thoughts, no anxiety Endocrine: No polyuria no polyphagia or polydipsia, no heat intolerance no cold intolerance Hematological: No easy bruising or Lymph node swelling. * Medical History: H ypothyroidism, unspecified, Anxiety, Headache, History of Helicobacter pylori infection, Lung nodule. * Surgical History: c section 2000 , csection 2009 , surgery left foot joint replacement , surgery on right foot 2021, endoscopy 2024. * Hospitalization/Major Diagno stic Procedure: D enies Past Hospitalization. * Family History: F ather: alive. M other: alive. 1 brother(s) , 1 sister(s) . 2 daughter(s) . . * Social History: T ob: Nonsmoker ETOH: Social alcohol use Used to do medical billing now retired. * Medications: T aking Escitalopram Oxalate 20 MG Tablet 1 tablet Orally Once a day , Taking Pregnenolone 50 MG Tablet as directed Orally twice a day , Taking Magnesium 200 MG Tablet 3 daily Orally Once a day , Taking Cortisol , Taking [place] 3 1000 MG Capsule 1 capsule Orally Mon-Mon , Taking Vitamin D3 125 MCG (5000 UT) Tablet Disintegrating 1 tablet Orally every other day , Taking Multi Complete - Capsule as directed Orally once daily , Taking Vitamin C 500 MG Capsule 1 tablet Orally Once a day , Taking clonazePAM 1 MG Tablet 1 tablet Orally twice daily , Taking Levothyroxine Sodium 88 MCG Tablet TAKE 1 TABLET BY MOUTH DAILY , Discontinued Melatonin 1 MG Tablet 2 tablet at bedtime as needed Orally as needed , Discontinued Omeprazole 40 MG Capsule Delayed Release 1 capsule 1/2 to 1 hour before morning meal Orally Once a day , Discontinued Benzonatate 200 MG Capsule 1 capsule as needed Orally Three times a day , Medication List reviewed and reconciled with the patient * Allergies: E ggs or Egg-derived Products, Shellfish-derived Products, Augmentin: rash, Gluten. Objective: * Vitals: H R:81/min, BP:102/64mm Hg, Wt:139.6lbs, BMI:23.96Index, Ht: 64 in, Oxygen sat %:95%. * Examination: G eneral Examination: G eneral: Age appropriate F, well appearing, no acute distress, speaking in full sentences without respiratory compromise. Well groomed, well developed. Skin: Warm, dry and intact. No lesions/rashes. Fair skin. HEENT: Normocephalic/atraumatic. EOMI intact. PERRLA. Vision intact. No ptosis or lid lag. Nares without discharge or inflammation. Oral cavity free of plaques or exudates. Dentition well maintained. No pharyngeal erythema. Bilateral TM with sharp cone of light Neck/Thyroid: Supple, with no lymphadenopathy. No carotid artery bruits auscultated. Thyroid free of nodules. Nonenlarged Lung: Clear to auscultation bilaterally, no wheezes, rales or rhonchi. No barrel chest. Cardiac: S1 and S2 appreciated. No murmurs/rubs or gallops. DP pulses intact 2+ bilaterally. Abdomen: Soft, nontender, normoactive bowel sounds. No rebound/guarding. No CVA tenderness. Extremities: Bilateral lower extremities with no edema or rubor. No evidence of varicose veins. MSK: Bilateral upper and lower extremities 5/5 strength with flexion/extension. 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 Neuro: CN II-XI grossly intact. Steady gait with ambulation observed. Psych: Stable mood and affect. Assessment: * Assessment: 1. G eneral medical exam - Z00.00 (Primary) 2 . A nxiety - F41.9 3 . H ypothyroidism, unspecified type - E03.9 4 . D epression, unspecified depression type - F32.A 5 . H yperlipidemia, mild - E78.5 6 . E ncounter for examination of blood pressure without abnormal findings - Z01.30 ?7. U RI with cough and congestion - J06.9 8 . I mpacted cerumen of left ear - H61.22 Srinivas.Torsten is a 52 yo female pt wit h a pmhx of anxiety, hypothyroid, headaches, depression, arthritis of the neck, allergic dermatitis, ovarian failure here for CPE. She is currently not working. 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 #L ear cerumen impaction: Irrigated in office with success # URI. Supportive care. COVID swab neg #Anxiety/Depression: Chronic. She is currently managed on clonazepam and duloxetine. Well managed. She sees a therapist as well as a psychiatrist via telehealth. # Hyperlipidemia. LDL 139. HDL 88. Discussed significance of values. Will reassess in 6 mo. #Hypothyroidism: She was diagnosed when she was 16 and has been on levothyroxine since then. She is concerned she may have Lizet's. # Hx of h pylori. S/p treatment Spring 2023. Resolve sx. Had upper endo with Dr. Frazier # Screenings. Colonscopy 2017 (due again in 10 years). Mammogram January 2024, Pap January 2024. Will need bone density @ 54. Physical Women Patient seen and examined. Comprehensive discussion was done on the following. 1. Nutrition: It is important to follow a healthy diet based on lots of vegetables and legumes and good fat. Avoid processed food and processed carbohydrates. Learn to prepare your own meals. Learn to read labels and avoid high fructose corn syrup, processed chemicals added to increase shelf life and preprepared meals. Avoid fast foods. Learn to eat slowly and plan meals for a week. Try to count calories and be mindful off daily calorie intake. Get into the habit of keeping an eye on your weight by using an appropriate scale. Learn to log exercise and discussed fitness Apps like Wengo which can help keep log off calories taken versus calories burned. Local food should be preferred. Discussed Dirty Dozen Versus Clean Fifteen. Discussed healthy supplements like fish oil, Tumeric, Curcumin, Melatonin, Resveratrol, Probiotics, Vitamin-D, Alpha-Lipoic acid, Vitamin-D and coconut oil. 2. It is important to exercise regularly. Is a good habit to walk at least 30-45 minutes a day. Gentle weightlifting with standard precautions to protect the back. Finding activity like cycling or hiking and get into the habit of engaging in it. Stretching before and after the exercises important. It is also important to contact me if there are any problems like shortness of breath, chest pain, back pain and joint or muscle pain associated with the exercise. 3. Discussed age appropriate screening guidelines. Colonoscopy needs to start at age 50 with stool for occult blood as appropriate. There is a new test that can test for genetic abnormalities in the stool sample. This would not replace a colonoscopy but could be used as a screening tool for patients who do not want a colonoscopy. We discussed the importance of early detection of colon cancer. 4. Discussed current guidelines with respect to breast examination, mammogram and pap smear for early detection of breast and cervical cancer. Patient advised to follow up with these appointments. 5. Discussed safe driving and no use of smart phone while driving 6. Age-appropriate immunizations were discussed. A tetanus booster is needed every 10 years. Flu vaccine is recommended every year just before the start of the flu season. Shingles vaccine is recommended after age 50 but not all insurances cover it. Pneumonia vaccine is given after age 65 unless there are certain comorbidities for which it is started earlier. 7. Diagnostic labs were discussed. These could include CBC CMP and lipids with fasting blood glucose and insulin levels. Vitamin D and hemoglobin A1c testing might be appropriate. Case discussed with collaborating physician Anat Sainz who reviewed the assessment and plan. Chart, medications, labs, vital signs reviewed. Dictation was accomplished with the use of [employer] voice recognition software, prone to medical misidentifications and grammatical errors. This is unintentional and the practitioner does try to identify and correct these, but some could still be present. Please do not hesitate to contact practitioner for clarification. All questions answered to patients satisfaction. Patient verbalized understanding of diagnosis and treatments explained. To call sooner prior to next visit it any questions/concerns arise. Plan: * Treatment: * Labs: * L ab: PPC Rapid Covid/Strep/Flu/RSV N egative * Procedure Codes: 3 074F SYST BP LT 130 MM HG, 3078F DIAST BP < 80 MM HG, 50163 SARSCOV2&INF A&B&RSV AMP PRB, Modifiers: QW , 92470 EAR IRRIGATION * Images: Billing Information: * Visit Code: 38570 Preventive Care Est Pt. Age 40-64. Modifiers: SA * Procedure Codes: 3074F SYST BP LT 130 MM HG. 3078F DIAST BP < 80 MM HG. 50011 SARSCOV2&INF A&B&RSV AMP PRB. Modifiers: [id number] EAR IRRIGATION. Care Plan Details* * Sign off status: Completed true * Provider: Srinivas PELLETIER PA-C Date: 0 02/28/2025 Generated for Shy asif/Javi/Mary Kay on: 0 03/05/2025 08:02 AM EDT History and Physical Notes * HPI (History of Present Illness) Category Sub-Category Detail Notes Category Not es Constitutional Rosita is a 54 yo female with a pmhx of Hypothyroidism, unspecified, Anxiety, Headache, History of Helicobacter pylori infection. She presents today for a physical. She has a new concern of having an URI the past month with a cough stuffy nose, sinus pressure and her ears feeling full. She denies any dypnea or fever.Has not seen anyone about it has taken robatoussin few days, tylenol cold, fluticasone. She has an appointment next week with the metal cleaner for a CT and was instructed to get a Chest x-ray prior to important CT scan for next, X-ray schdueled for next week. She also tour her right labrum in which she got a cortisone shot and is followed by ortho for prp. She has trouble falling and staying alseep for year but does not really like taking any sleeping pills. She also feels thirsty often but drinks plenty of water. PHQ-9 is 1. Due to Tdap. UTD otherwise on all screening exams. Having difficulty getting an OBGYN appt. Examination Category Sub-Category Detail Notes Category Not es General Examination General: Age appropriate F, well appearing, no acute distress, speaking in full sentences without respiratory compromise. Well groomed, well developed. Skin: Warm, dry and intact. No lesions/rashes. Fair skin. HEENT: Normocephalic/atraumatic. EOMI intact. PERRLA. Vision intact. No ptosis or lid lag. Nares without discharge or inflammation. Oral cavity free of plaques or exudates. Dentition well maintained. No pharyngeal erythema. Bilateral TM with sharp cone of light Neck/Thyroid: Supple, with no lymphadenopathy. No carotid artery bruits auscultated. Thyroid free of nodules. Nonenlarged Lung: Clear to auscultation bilaterally, no wheezes, rales or rhonchi. No barrel chest. Cardiac: S1 and S2 appreciated. No murmurs/rubs or gallops. DP pulses intact 2+ bilaterally. Abdomen: Soft, nontender, normoactive bowel sounds. No rebound/guarding. No CVA tenderness. Extremities: Bilateral lower extremities with no edema or rubor. No evidence of varicose veins. MSK: Bilateral upper and lower extremities 5/5 strength with flexion/extension. 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 Neuro: CN II-XI grossly intact. Steady gait with ambulation observed. Psych: Stable mood and affect
--- NOTE | ~2025-03-05 | CT_ITS ---
CLINICAL HISTORY: R91.8 - Other nonspecific abnormal finding of lung field CT chest without contrast Comparison: CT/REG/AL/SR - CT CHEST WITHOUT IV CONTRAST - 03/18/24 09:[address]/REG/AL/SR - CT CHEST WO IV CON - 08/28/23 07:28 EST Findings: The heart is normal size. The visualized thyroid and mediastinum are unremarkable. Multiple stable bilateral pulmonary nodules. For example, there is a 3 mm solid right upper lobe pulmonary nodule. Another example is a 6 mm solid left lower lobe pulmonary nodule. Calcified pulmonary granulomas. The upper abdomen is unremarkable. The bones are intact. IMPRESSION: Multiple stable bilateral pulmonary nodules. For example, there is a 3 mm solid right upper lobe pulmonary nodule. Another example is a 6 mm solid left lower lobe pulmonary nodule. This document has been electronically signed by: Fernando Levin DO on 03/05/2025 12:51:33
--- OUTSIDE RECORDS SUMMARY | 2025-03-05 08:02 | XMS_ITS | Clinical Summary ---
Author Organization [facility] Address [address] [place] [address] Phone Care Team Providers Care Cigar Packer Name Role Phone Susie Duarte Primary Care Provider [phone] Allergies Active Allergy Reactions Criticality Noted Date Comments Amoxicillin 05/24/2024 Amoxicillin-Pot Clavulanate 05/24/20 24 Medications levothyroxine (Synthroid) 100 mcg tablet 1 TABLET DAILY Acti ve escitalopram (LEXAPRO) 20 mg tablet Take 1 tablet (20 mg total) by mouth 1 (one) time each day. Active clonazePAM (KlonoPIN) 1 mg tablet Take 1 tablet (1 mg total) by mouth if needed for anxiety. Active fluticasone propionate (FLONASE) 50 mcg/actuation nasal spray Administer 1 spray into each nostril 1 (one) time each day. Shake gently. Before first use, prime pump. After use, clean tip and replace cap. Active cetirizine (ZyrTEC) 10 mg tablet Take 1 tablet (10 mg total) by mouth 1 (one) time each day. Active ascorbic acid (VITAMIN C) 1,000 mg tablet Take 1 tablet (1,000 mg total) by mouth 1 (one) time each day. Active mv-mn/iron/foli c acid/herb 190 (VITAMIN D3 COMPLETE ORAL) Take by mouth. Active omega-3 acid ethyl esters (LOVAZA) 1 gram capsule Take 1 capsule (1 g total) by mouth 2 (two) times a day. Active multivit with minerals/lutein (MULTIVITAMIN 50 PLUS ORAL) Take by mouth. A ctive Lactobac 40-Bifido 3-S.thermop (Probiotic) 100 billion cell capsule Take by mouth 1 (one) time each day. Active Active Problems Problem Noted Date Diagnosed Date Hypothyroidism 07/08/2024 Mixed anxiety depressive disorder 07/08/2024 Primary localized osteoarthrosis of ankle and fo ot 07/08/2024 Cardiac risk counseling 05/24/2024 Assessment & Plan (05/24/2024 5:17 PM EST): See plan above. Palpitations 05/23/2024 Overview (05/24/2024): 7-day event monitor in April 2024-mainly showed sinus rhythm with physiologic variation, patient's symptoms correlated to normal sinus rhythm for the most part with heart rates in the 70s to 80s, rare APCs and PVCs Assessment & Plan (05/24/2024 5:17 PM EST): I agree with the patient and her PCP that her symptoms sound more GI in nature. This is further evidenced by the fact that her symptoms did not correlate with any specific ECG abnormality on Holter which was very reassuring. Ultimately I reassured her that her Holter findings are likely very physiologic and not concerning at all. Her bradycardic episodes occurred mostly during sleeping hours which is completely normal. Furthermore she did not have any high-grade AV block or significant pauses. I cautioned her against relying too much on the johnathon readouts of heart rates and rhythm interpretation. They are often inconsistent and flawed. She completely understood. The other reassuring factors that she is maintaining a healthy active lifestyle without any symptoms which is very important. I did review the possibility of further restratification given her paternal grandfather history of premature coronary disease. She does not have standard risk factors of severe hyperlipidemia, hypertension, pre-existing history of associated complications such as preeclampsia, eclampsia, gestational hypertension or diabetes. She is not a smoker. I mentioned that she could consider adding an apolipoprotein B 100 level which often is a better correlate to future cardiovascular events than the standard lipid profile. I also recommended checking a high-sensitivity CRP. She believes her seasonal driver is already done these tests. We did go over the possibility of coronary calcium scoring. At age 49, I recommended that it may not be helpful or definitive and that her plaque may not be calcified yet. She could consider this in 10 years or so if desired for further restratification. For now, continue heart healthy lifestyle as she is already doing. Orders: ECG 12 lead Resolved Problems Problem Noted Date Diagnosed Date Resolved Date Abnormal heart rate 05/23/2024 05/24/20 24 Surgical History Surgery Date Site/Laterality Comments COLONOSCOPY 04/23/2018 recall 10 years SECTION, LOW TRANSVERSE JOINT REPLACEMENT LEFT BIG TOE Medical History Medical History Date Comments Unspecified disorder of thyroid DX:Unspecified disorder of thyroid Hiatal hernia GERD (gastroesophageal reflux disease) PONV (postoperative nausea and vomiting) [id number] Anxiety Arthritis Hypothyroidism Family History Medical History Relation Name Comments Ulcerative colitis Father Possible, patient not sure Heart attack Maternal Grandfather Yovani Coronary artery disease Mother Poss ible CAD s he has described having blockages Glaucoma Mother Heart attack Paternal Grandmother Had an NV in his 40s but ultimately in his late 60s Blindness Neg Hx Cataracts Neg Hx Colon cancer Neg Hx Macular degeneration Neg Hx Strabismus Neg Hx Relation Name Status Comments Father Maternal Grandfather Yovani Mother Paternal Grandmother Social History Tobacco Use Types Packs/Day Years Used Date Smoking Tobacco: Never Smokeless Tobacco: Never Tobacco Cessation:Counseling Given: Not Answered Alcohol Use Standard Drinks/Week Comments Yes 0 (1 standard drink = 0.6 oz pur e alcohol) social Interpersonal Safety Answer Date Record ed Physical Abuse 08/30/2024 Verbal Abuse 08/30/2024 Comments Unknown Sex and Gender Information Value Date Recorded Sex Assigned at Female 08/29/2024 2:04 PM EST Legal Sex Female 12:09 AM EST Gender Identity Female 08/29/2024 2:04 PM EST Sexual Orientation Straight 08/30/2024 2: 02 PM EST Obstetrics History Last Filed Vital Signs Vital Sign Reading Time Taken Comments Blood Pressure 111/61 08/30/2024 4:08 PM EST Pulse 67 08/30/2024 4:08 PM EST Temperature 36.5 C (97.7 F) 08/30/2024 2:26 PM EST Respiratory Rate 16 08/30/2024 4:08 PM EST Oxygen Saturation 98% 08/30/2024 4:08 PM EST Inhaled Oxygen Concentration - - Weight 64 kg (141 lb) 11/26/2024 8:14 AM EDT Height 162.6 cm (5' 4.02 ) 11/26/2024 8:14 AM ED T Body Mass Index 24.19 11/26/2024 8:14 AM EDT Plan of Treatment Upcoming Encounters Date Type Department Care Team (Late st Contact Info) Description 03/25/2025 10:00 AM EDT Procedure visit Orthopedic Surgery - [place] [address] [facility] [address] [place] [id number] Luci Armijo MD [address] [facility] [address] [place] [address] Health Maintenance Due Date Last Done Comments Breast Cancer Screening 1969 Hepatitis B Vaccines (1 of 3 - 19+ 3-dose series) 1988 Cervical Cancer Screening: P ap Smear 1990 Pneumococcal Vaccine: 50+ Years (1 of 1 - PCV) 2019 Zoster Vaccines (1 of 2) 2019 HIV Screening 06/05/2022 Hepatitis C Screening 06/05/2022 Social Influencers of Health Screening 06/05/2022 DTaP,Tdap,and Td Vaccines (2 - Td or Tdap) 12/19/2022 12/19/2012 Depression Screening 07/03/2024 COVID-19 Vaccine (4 - 2024-2 6 season) 2025 06/07/2021, 11/11/2020, 10/21/2020 Influenza Vaccine (#1) 2025 Colorectal Cancer Screening: Colonoscopy 04/23/2028 04/23/2018 HIB Vaccines Aged Out No longer eligi ble based on patient's age to complete this topic HPV Vaccines Aged Out No longer eligi ble based on patient's age to complete this topic Hepatitis A Vaccines Aged Out No long er eligible based on patient's age to complete this topic IPV Vaccines Aged Out No longer eligi ble based on patient's age to complete this topic MMR Vaccines Aged Out No longer eligi ble based on patient's age to complete this topic Meningococcal ACWY Vaccine Aged Out N o longer eligible based on patient's age to complete this topic Meningococcal B Vaccine Aged Out No l onger eligible based on patient's age to complete this topic RSV Immunization Patients Under 20 months Aged Out No longer eligible b ased on patient's age to complete this topic Varicella Vaccines Aged Out No longer eligible based on patient's age to complete this topic Procedures Procedure Name Priority Date/Time Associated Diagnosis Comments COLONOSCOPY Routine 04/23/2018 8:45 AM EDT from Last 3 Months or Most Recently Relevant to Health Maintenance Results * COLONOSCOPY (04/23/2018 8:45 AM EDT) Anatomical Region Laterality Modality Endoscopy us Historical Provider GI~PROCEDURE ORDERABLES F inal Result from Last 3 Months or Most Recently Relevant to Health [id number] [id number] [facility] Care Teams Cigar Packer Relationship Specialty Start Date End Date Susie Duarte PA [address] [place] [id number] PCP - General 12/29/23
--- OUTSIDE RECORDS SUMMARY | 2025-03-05 08:02 | XMS_ITS | Patient Health Record ---
Author Organization [facility] [address] Address [address] [place] [address] Care Team Providers Care Dehydrogenation Operator Name Role Phone MESERET PELLETIER Unavailable [phone] ALEXANDER SAINZ Unavailable [phone] LUDY VERGARAIA Unavailable [phone] Allergies Allergen (clinical drug ingredient) Drug/Non Drug Allergy documented on EMR Reaction Allergy Type Onset Date Status amoxicillin / clavulanate Augmentin rash Drug Allergy Active Eggs or Egg-derived Products Unknown Drug Allergy Active Gluten Gluten Unknown Allergy Active Shellfish (FN) Shellfish-derived Products Unknown Drug Allergy Active Results Component Value Reference Range Notes Free T-3 Reviewed date:03/21/2024 02:31:00 PM Interpretation: Performing Lab:[facility], [address] [facility], Phone - [phone], Director - Kelvin Notes/Report: Free T-3 3.4 Reference Range: >=20y: 2.0 - 4.4 Hemoglobin A1c Reviewed date:03/21/2024 02:31:00 PM Interpretation: Performing Lab:[facility], [address] [facility], [place], Phone - [phone], Director - MDJodry Notes/Report: Hemoglobin A1c 5.5 Reference Range: [place] Diabetes Association (ADA) Guidelines: <5.7: Decreased risk for diabetes 5.7 - 6.4: Increased risk for diabetes >6.4: Ongoing Hyperglycemia of any cause <7.0: Glycemic control for adults with diabetes Estimated Average Glucose 111 Comp. Metabolic Panel (14)-3 82033 Reviewed date:03/21/2024 02:31:00 PM Interpretation: Performing Lab:[facility] [place], [address] [place] [address], Phone - [phone], Director - MDJodry Notes/Report: Glucose 78 70-99 mg/dL BUN 18 6-24 mg/dL Creatinine 0.58 0.57-1.00 mg/dL eGFR 107 >59 mL/min/1.73 BUN/Creatinine Ratio 31 9-23 Sodium 140 134-144 mmol/L Potassium 4.7 3.5-5.2 mmol/L Chloride 100 96-106 mmol/L Carbon Dioxide, Total 27 20-29 mmol/L Calcium 9.7 8.7-10.2 mg/dL Protein, Total 6.5 6.0-8.5 g/dL Albumin 4.6 3.8-4.9 g/dL Globulin, Total 1.9 1.5-4.5 g/dL Bilirubin, Total 0.5 0.0-1.2 mg/dL Alkaline Phosphatase 87 44-121 IU/L AST (SGOT) 26 0-40 IU/L ALT (SGPT) 18 0-32 IU/L Lipid Panel-[id number] Reviewed date:03/21/2024 02:31:00 PM Interpretation: Performing Lab:[facility] [place], [address] [place] [address], Phone - [phone], Director - MDJodry Notes/Report: Cholesterol, Total 236 100-199 mg/dL Triglycerides 87 0-149 mg/dL HDL Cholesterol 72 >39 mg/dL VLDL Cholesterol Jono 15 5-40 mg/dL LDL Chol Calc (NIH) 149 0-99 mg/dL CBC With Differential/Platel et-[id number] Reviewed date:03/21/2024 02:31:00 PM Interpretation: Performing Lab:[facility] [place], [address] [place] [address], Phone - [phone], Director - MDJodry Notes/Report: WBC 5.3 3.4-10.8 x10E3/uL RBC 4.30 3.77-5.28 x10E6/uL Hemoglobin 12.5 11.1-15.9 g/dL Hematocrit 38.5 34.0-46.6 % MCV 90 79-97 fL MCH 29.1 26.6-33.0 pg MCHC 32.5 31.5-35.7 g/dL RDW 12.8 11.7-15.4 % Platelets 267 150-450 x10E3/uL Neutrophils 71 Not Estab. % Lymphs 18 Not Estab. % Monocytes 7 Not Estab. % Eos 3 Not Estab. % Basos 1 Not Estab. % Neutrophils (Absolute) 3.8 1.4-7.0 x10E3/uL Lymphs (Absolute) 0.9 0.7-3.1 x10E3/uL Monocytes(Absolute) 0.4 0.1-0.9 x10E3/uL Eos (Absolute) 0.1 0.0-0.4 x10E3/uL Baso (Absolute) 0.0 0.0-0.2 x10E3/uL Immature Granulocytes 0 Not Estab. % Immature Grans (Abs) 0.0 0.0-0.1 x10E3/uL TSH-[id number] Reviewed date:03/21/2024 02:31:00 PM Interpretation: Performing Lab:[facility] [place], [address] [place] [address], Phone - [phone], Director - MDJodry Notes/Report: TSH 1.960 0.450-4.500 uIU/mL Urinalysis, Routine-[id number] Reviewed date:03/21/2024 02:31:00 PM Interpretation: Performing Lab:[facility] [address], Phone - [phone], Director - MDJodry Notes/Report: Specific Cotton 1.018 1.005-1.030 pH 7.5 5.0-7.5 Urine-Color Yellow Yellow Appearance Clear Clear WBC Esterase Negative Negative Protein Negative Negative/Trace Glucose Negative Negative Ketones Negative Negative Occult Blood Negative Negative Bilirubin Negative Negative Urobilinogen,Semi-Qn 0.2 0.2-1.0 mg/dL Nitrite, Urine Negative Negative Microscopic Examination Microscopic not indicated and not performed. Thyroxine (T4) Free, Direct- [id number] Reviewed date:03/21/2024 02:31:00 PM Interpretation: Performing Lab:[facility] [address], Phone - [phone], Director - MDJodry Notes/Report: T4,Free(Direct) 1.62 0.82-1.77 ng/dL US ARTHROCENTESIS ASP INJ HALEY INT MAJOR RIGHT Reviewed date:11/05/2024 10:11:02 AM Interpretation: Performing Lab: Notes/Report: Note See Note [facility], a member of [employer] Patient Name: LISSA IRIZARRY Date of : 1970 Reason for Exam: shoulder pain Exam Date: 11/05/2024 [id number] EST Report Status: Final Ordering Provider: GALINDO CHRISTY PCP: MESERET PELLETIER PROCEDURE Right Glenohumeral injection for osteoarthritis. Risk including infection, post-inje ction steriod flare, hypopigmentation, neurovascular injury and fat atrop hy, were thoroughly discussed with the patient. The patients understood the risks and gave verbal consent for the procedure. The posteriorlateral shoulder was prepped with Chloro-prep after anatomical landmarks where palpated and visualized with ultrasound. Ethyle chloride was used as to topical anesthetic. Then using a 23-gauge 3-1/2 inch needle lidocain e 2 mL was used as a local anesthetic.Kenalog 40mg and lidocaine 3 cc w ere injected into the joint using sterile technique under ultrasound debra dance without complications. The patient tolerated the procedure well. Afte rcare was thoroughly discussed with the patient. Images were recorded and will permanently stored in patients medical record. TISSUE EXAM Reviewed date:09/05/2024 08:06:50 AM Interpretation: Performing Lab: Notes/Report: Addendum electronically signed by Roya Tovar MD on 09/04/2024 at 10:36 AM Helicobacter pylori: negative. Immunohistochemistry: Final Diagnosis A. Small Intestine, Duodenum, biopsy: - Duodenal mucosa with preserved villi and no specific pathologic changes. - Negative for increased intraepithelial lymphocytes. B. Stomach, gastric biopsy: - Gastric antral mucosa with no specific pathologic changes. - Gastric oxyntic mucosa with focal chronic gastritis. Note: Immunostain for Helicobacter pylori will be performed. C. Esophagus, mid esophagus biopsy: - Esophageal squamous mucosa with no specific pathologic changes. - Negative for intraepithelial eosinophils. Gross Description A. Small Intestine, Duodenum, biopsy: Labeled biopsy duodenum . Received in formalin are five soft, velvety, guzman tissue fragments ranging from 0.15 cm to 0.25 cm in greatest diameter, which are wrapped in paper and submitted in toto in one cassette, five pieces, multiple levels. B. Stomach, gastric biopsy: Labeled gastric stomach . Received in formalin are three soft, guzman-red tissue fragments measuring approximately 0.3 cm in greatest diameter, which are wrapped in paper and submitted in toto in one cassette, three pieces, multiple levels. C. Esophagus, mid esophagus biopsy: Labeled mid esophagus . Received in formalin are three soft to friable, white tissue fragment ranging from 0.2 cm to 0.4 cm greatest diameter, which are wrapped in paper and submitted in toto in one cassette, three pieces, multiple levels. TS Disclaimer NOTE: The immunohistochemical tests and in situ hybridization tests were developed and their performance characteristics were determined by [facility]. They have not been cleared or approved by the U.S. Food and Drug Administration. The FDA has determined that such clearance or approval is not necessary. These tests are used for clinical purposes. They should not be regarded as investigational or for research. This laboratory is certified under the Clinical Laboratory Improvement Amendments of 1988 (CLIA) as qualified to perform high complexity clinical laboratory testing. (controls appropriate) Unless otherwise specified, all tissue is 10% NB formalin fixed and paraffin embedded. Addendum Part B: EKG Reviewed date: Interpretation: Performing Lab: Notes/Report: ECGDiastolicBP 62 ECGHr 72 ECGPRInterval 176 ECGPWaveAxis 46 ECGQRSDuration 86 ECGQrsWaveAxis 33 ECGQTcInterval 377 ECGQTInterval 356 ECGSystolicBP 118 ECGTWaveAxis 50 RR_DiastolicBP 0 RR_MaxRRInterval 0 RR_MeanHR 0 RR_MeanRRInterval 0 RR_MinRRInterval 0 RR_NumBeats 0 RR_NumNormalBeats 0 RR_SystolicBP 0 XR ESOPHAGRAM Reviewed date:06/28/2024 11:51:58 AM Interpretation: Performing Lab: Notes/Report: Note See Note [facility], a member of [employer] Patient Name: LISSA IRIZARRY Date of : 1970 Reason for Exam: functional dyspepsia Exam Date: 06/24/2024 [id number] EST Report Status: Final Ordering Provider: MESERET PELLETIER PCP: MESERET PELLETIER FINDINGS: Double con trast esophagram performed. COMPARISON: CT abdom en and pelvis November 06, 2023 HISTORY: Patient is a 53-year-old female with history of worsening GERD for the last 3 months. Pole Sander Operator radiographs: 1 view chest radiograph demonstrates cardiac and mediastinal borders within normal limits. Lungs are clear bilaterally. Costophrenic angles are sharp. There are mild bony degenerative changes of the thoracolumbar spine. Effervescent crystal s were administered orally. Thick and thin barium were administered orally under fluoroscopic control. Pharyngoesophagram: Rapid sequence imaging of the hypopharynx during swallowing demonstrates prompt initiation of swallowing. There is normal soft palate elevation and normal epiglottic motion. There is no laryngeal penetration or samy aspiration. There is no residual in the vallecula nor in the piriform sinuses. Thoracic esophagus: There is moderate esophageal dysmotility as measured by break in the primary peristaltic stripping wave and slow transit of contrast down the esophagus. Normal distensibility and mucosal pattern without evidence of ulceration, stricture or mass formation. Hiatal hernia: None Reflux: Unable to elicit 13mm Barium pill: Swallowed without difficulty. Temporary lodging of 13 mm barium tablet at the level of the GE junction with eventual passage of pill from the esophagus into the stomach, thought most likely secondary to dysmotility rather than stricture formation. DAP: 478 Gycm^2 Exam performed and dictated by: Cleopatra Lim PA-C Supervising physicia n: Karson Eastman MD IMPRESSION: Moderate esophageal dysmotility with temporary lodging of 13 mm barium tablet at the level of the GE junction, most likely secondary to dysmotility. Otherwise normal double contrast esophagram. -------- FINAL REPOR T -------- Dictated By: Cleopatra Lim Dictated Date: 06/24 10:19 ET Assigned Physician: Karson Eastman Reviewed and Electronically Signed By: Karson Eastman Signed Date: 024 20:53 ET Workstation ID: [id number] Transcribed By: Self Edit Transcribed Date: 06/24/2024 10:25 ET Resident/PA/ORDER ENTRY TECHNICIAN: Cleopatra Amor Reason For Referral Reason [facility] Diagnosis 1 Frequent PVCs (I49.3 ) Diagnosis 2 Bradycardia (R00.1) Referral Organization [facility] [address] Referring Provider First Name MESERET Referring Provider Last Name LIYAH Referring Provider Speciality Internal M edicine Referred Provider Siobhan Borrero Referred Provider Specialty Cardiology General Notes SEBASTIAN SEBASTIAN 1 02:06:16 PM >information sent over to [facility]- Holter monitor sent over as well, SEBASTIAN SEBASTIAN 05/06/2024 02:56:22 PM >[address], [address], [facility] [address], 9 [address] from Patient's Address, , Clinical Notes tarik narayanan 1 08/11/2023 10:25:25 AM >[facility] Referral Priority Routine Reason R labral tear with [facility] Diagnosis 1 Superior glenoid lab rum lesion of right shoulder, initial encounter (S43.431A) Referral Organization [facility] [address] Referring Provider First Name MESERET Referring Provider Last Name LIYAH Referring Provider Speciality Internal M edicine Referred Provider Specialty Orthopedic S urgery General Notes [facility], [address], [address], [place], [place], P [phone], F [phone] Clinical Notes Jadyn Marquez 2023 08:10:15 AM >Referral with notes, imaging, and labs sent to [facility]. Paper copy mailed to pt for record. TY., Cuate Cervantes 05/23/2024 04:06:47 PM > Scheduled for 05/28 at 2 pm. Pt aware Referral Priority Routine Medications Medication SIG (Take, Route, Frequency, Duration) Notes Start Date End Date Status Vitamin D3 125 MCG (5000 UT) 1 tablet Or ally every other day Active O'Neals 3 1000 MG 1 capsule Orally Mon-Mon Active Vitamin C 500 MG 1 tablet Orally Once a day Active Multi Complete - as directed Orally o nce daily Active Levothyroxine Sodium 88 MCG TAKE 1 TABLE T BY MOUTH DAILY; Duration: 90 Active clonazePAM 1 MG 1 tablet Orally twic e daily Active Escitalopram Oxalate 20 MG 1 tablet Oral ly Once a day Active Magnesium 200 MG 3 daily Orally Once a day Active Pregnenolone 50 MG as directed Orally t wice a day Active Cortisol Active Immunizations Vaccine Route Administration Date Status Comme nts Pfizer Covid-19 Vaccine Unknown 10/21/2020 Administered Pfizer Covid-19 Vaccine Unknown 11/11/2020 Administered Pfizer Covid-19 Vaccine Unknown 06/07/2021 Administered Tdap Unknown 12/19/2012 Administered Problems Problem Type SNOMED Code ICD Code Onset Dates Problem Status W/U Status Risk Notes Problem Multiple pulmonary nodules (102769016) Pulmonary nodules (R91.8) Active confirmed Problem Indigestion (057926316) Indigestion (K30) Active confirmed Problem Seasonal allergy (561492722) Seasonal allergies (J30.2) Active confirmed Problem Hypothyroidism (67570345) Hypothyroidism, unspecified type (E03.9) Active confirmed Problem Anxiety (40512254) Anxiety (F41.9) Active confi rmed Problem Gastroesophageal reflux disease (252878247) GERD (gastroesophageal reflux disease) (K21.9) Active confirmed Problem 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, 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 confirmed Problem hypercholesterolemia (disorder) (60008628) Hypercholesteremia (E78.00) Active confirmed Problem Bradycardia (58321451) Bradycardia (R00.1) Active confirmed Problem Multiple premature ventricular complexes (142486495) Frequent PVCs (I49.3) Active confirmed Problem Imaging of abdomen abnormal (948360616) Abnormal CT scan, pelvis (R93.5) Active confirmed Problem CT of abdomen abnormal (26548060080797711) Abnormal abdominal CT scan (R93.5) Active confirmed Problem Heterogeneously dens e breast composition (452392940) Dense breast (R92.30) Active confirmed Problem Plain X-ray of chest abnormal (finding) (1806882392) Abnormal chest xray (R93.89) Active confirmed Problem Heart rate slow (35510709) Heart rate slow (R00.1) Active confirmed Problem Hyperlipidemia (18535021) Hyperlipidemia, mild (E78.5) Active confirmed Problem Depressive disorder (disorder) (87013658) Depression, unspecified depression type (F32.A) Active confirmed Problem Cough (94967460) Cough (R05.9) Active confirmed Problem Allergic contact dermatitis (591630956) Allergic dermatitis (L23.9) Active confirmed Problem Abdominal bloating (042470295) Abdominal bloating (R14.0) Active confirmed Problem General examination of patient (172837785) General medical exam (Z00.00) Active confirmed Problem Vitamin D deficiency (49581126) Vitamin D deficiency (E55.9) Active confirmed Problem Hyperlipoproteinemia (4589809) Acquired 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 pylori] as the cause of diseases classified elsewhere (B96.81) Active confirmed Vital Signs Heart Rate 81 /min 02/28/2025 Oximetry 95 % 02/28/2025 Blood pressure diastolic 64 mm Hg 02/28/2025 Height 64 in 02/28/2025 Blood pressure systolic 102 mm Hg 02/28/2025 Weight 139.6 lbs 02/28/2025 BMI 23.96 kg/m2 02/28/2025 Encounters Encounter Location Date Provider Diagnosis [address] 04/18/2024 ALEXANDER SAINZ [address] 04/11/2024 MESERET LIYAH Palpitations R00.2 ; Hiatal hernia K44.9 ; Encounter for screening for cardiovascular disorders Z13.6 and GERD (gastroesophageal reflux disease) K21.[address] 05/06/2024 MESERET LIYAH Palpitations R00.2 ; Hiatal hernia K44.9 ; Encounter for screening for cardiovascular disorders Z13.6 and GERD (gastroesophageal reflux disease) K21.[address] 08/02/2024 MOOK URSULA Cough R05.9 ; Anxiet y F41.9 ; Hypothyroidism, unspecified type E03.9 and GERD (gastroesophageal reflux disease) K21.[address] 02/28/2025 MESERET PELLETIER General medical exam Z00.00 ; Anxiety F41.9 ; Hypothyroidism, unspecified type E03.9 ; Depression, unspecified depression type F32.A ; Hyperlipidemia, mild E78.5 ; Encounter for examination of blood pressure without abnormal findings Z01.30 ; URI with cough and congestion J06.9 and Impacted cerumen of left ear H61.[address] [facility] [address] [place] [address] 03/21/2024 MESERET LIYAH [facility] [address] [address] 03/29/2024 MESERET PELLETIER Right shoulder pain, unspecified chronicity M25.511 [facility] [address] [address] 04/11/2024 MESERET LIYAH [facility] [address] [place], [place] 04/11/2024 MESERET PELLETIER Indigestion K30 [facility] [address] 05/03/2024 MESERET LIYAH [facility] [address] [place], [place] 05/03/2024 MESERET LIYAH [facility] [address] [place], [place] 05/06/2024 MESERET PELLETIER Limited range of mot ion (ROM) of shoulder M25.619 and Degenerative tear of glenoid labrum of right shoulder M24.[address] [facility] [address] [place], [place] 05/14/2024 MESERET LIYAH [facility] [address] [address] 08/01/2024 MESERET LIYAH [facility] [address] [address] 08/05/2024 MOOK URSULA [facility] [address] [address] 09/04/2024 MESERET LIYAH [facility] [address] 11/28/2024 MESERET PELLETIER Breast cancer screen ing by mammogram Z12.[address] [facility] [address] [place] [address] 02/05/2025 MESERET PELLETIER Adult general medica l exam Z00.00 ; Screening for diabetes mellitus Z13.1 ; Screening for lipid disorders Z13.220 ; Screening for thyroid disorder Z13.29 and Vitamin D deficiency E55.[address] [facility] [address] [facility] [place] 02/05/2025 MESERET RECINOSA [facility] [address] [place], [place] 03/18/2024 MESERET LIYAH [facility] [address] [facility] [place] 04/24/2024 MESERET LIYAH [facility] [address] [facility] 04/25/2024 MESERET LIYAH [facility] [address] [facility] [place] 05/07/2024 MESERET PELLETIER Assessments Encounter Date Diagnosis (ICD Code) Assessment Notes Treatment Notes Treatment Clinical Notes Section Notes 03/29/2024 Right shoulder pain, unspecified chronicity (ICD-10 - M25.511) 04/11/2024 Palpitations (ICD-10 - R00.2) # Question hiatal hernia. Patient reports a gurgling sound in her chest. I suspect that this could be secondary to hiatal hernia. She has been eating more healthy foods, question quite a more gas. I will start her on a trial of 6 to 8 weeks of omeprazole 40 mg p.o. daily half hour before food. We will also add Gas-X as needed. Patient is okay to take Maalox if she needs to as well. Her thyroid levels were recently checked and were within normal limits. Giving that she was having a sensation in her chest, an EKG was done which was normal sinus rhythm with no ischemic changes. There is no PVCs. I will place a Holter monitor. She reports that she did download an johnathon and feels that her heart rate can be pretty variable. She denies any increased eructation or gas. She denies any abdominal pain. Patient is to call our office if symptoms change, she has associated diaphoresis, nausea, pain in the back. Case discussed with collaborating physician Anat Sainz who reviewed the assessment and plan. Chart, medications, labs, vital signs reviewed. Dictation was accomplished with the use of [employer] voice recognition software, prone to medical misidentifications and grammatical errors. This is unintentional and the practitioner does try to identify and correct these, but some could still be present. Please do not hesitate to contact practitioner for clarification. All questions answered to patients satisfaction. Patient verbalized understanding of diagnosis and treatments explained. To call sooner prior to next visit it any questions/concerns arise. 04/11/2024 Hiatal hernia (ICD-10 - K44.9) # Question hiatal hernia. Patient reports a gurgling sound in her chest. I suspect that this could be secondary to hiatal hernia. She has been eating more healthy foods, question quite a more gas. I will start her on a trial of 6 to 8 weeks of omeprazole 40 mg p.o. daily half hour before food. We will also add Gas-X as needed. Patient is okay to take Maalox if she needs to as well. Her thyroid levels were recently checked and were within normal limits. Giving that she was having a sensation in her chest, an EKG was done which was normal sinus rhythm with no ischemic changes. There is no PVCs. I will place a Holter monitor. She reports that she did download an johnathon and feels that her heart rate can be pretty variable. She denies any increased eructation or gas. She denies any abdominal pain. Patient is to call our office if symptoms change, she has associated diaphoresis, nausea, pain in the back. Case discussed with collaborating physician Anat Sainz who reviewed the assessment and plan. Chart, medications, labs, vital signs reviewed. Dictation was accomplished with the use of [employer] voice recognition software, prone to medical misidentifications and grammatical errors. This is unintentional and the practitioner does try to identify and correct these, but some could still be present. Please do not hesitate to contact practitioner for clarification. All questions answered to patients satisfaction. Patient verbalized understanding of diagnosis and treatments explained. To call sooner prior to next visit it any questions/concerns arise. 04/11/2024 Indigestion (ICD-10 - K30) 05/06/2024 Palpitations (ICD-10 - R00.2) # Palpitations: Holter monitor reviewed, did have episodic bradycardia that did correlate with some triggers. Will add stress test, as well as refer to cardiology # R shoulder pain. Did go to [employer] walk in, had a cortisone shot, wihtout relief. Difficulty with ROM, specifically adduction. MRI of shoulder will be added. Case discussed with collaborating physician Suhail Sainz who reviewed the assessment and plan. Chart, medications, labs, vital signs reviewed. Dictation was accomplished with the use of Dragon voice recognition software, prone to medical misidentifications and grammatical errors. This is unintentional and the practitioner does try to identify and correct these, but some could still be present. Please do not hesitate to contact practitioner for clarification. All questions answered to patients satisfaction. Patient verbalized understanding of diagnosis and treatments explained. To call sooner prior to next visit it any questions/concerns arise. 05/06/2024 Hiatal hernia (ICD-10 - K44.9) # Palpitations: Holter monitor reviewed, did have episodic bradycardia that did correlate with some triggers. Will add stress test, as well as refer to cardiology # R shoulder pain. Did go to [employer] walk in, had a cortisone shot, wihtout relief. Difficulty with ROM, specifically adduction. MRI of shoulder will be added. Case discussed with collaborating physician Suhail Sainz who reviewed the assessment and plan. Chart, medications, labs, vital signs reviewed. Dictation was accomplished with the use of Souqalmal voice recognition software, prone to medical misidentifications and grammatical errors. This is unintentional and the practitioner does try to identify and correct these, but some could still be present. Please do not hesitate to contact practitioner for clarification. All questions answered to patients satisfaction. Patient verbalized understanding of diagnosis and treatments explained. To call sooner prior to next visit it any questions/concerns arise. 05/06/2024 Limited range of motion (ROM) of shoulder (ICD-10 - M25.619) 08/02/2024 Anxiety (ICD-10 - F41.9) Lissa is a pleasant 54-year-old female the past medical history of hypothyroidism, anxiety, headache, history of H. pylori who presents to the office today for a 3-week history of an intermittent lingering cough. #Upper respiratory infection: Viral swab in office today cannot be performed due to supply shortage. Viral swab will be ran on Monday. Chest x-ray will be obtained due to the patient's cough duration, at this time reassuring that lung sounds are clear in the upper and lower lung lind bilaterally. Tessalon Perles sent to pharmacy today to be utilized as needed for cough, patient instructed to utilize these pills up to 3 times a day and they may cause drowsiness. #Anxiety: Continue escitalopram 20 mg #Hypothyroidism: Continue levothyroxine sodium 88 mcg tablets #GERD: Continue omeprazole 40 mg tablets once daily. All questions have been answered to patient's satisfaction. Patient verbalized understanding of diagnosis and treatments explained. Advised to call sooner prior to next visit it any questions/concerns arise. Case discussed with Yaya ECHEVERRIA who reviewed the assessment and plan. Chart, medications, labs, vital signs reviewed. Dictation was accomplished with the use of Souqalmal voice recognition software, which is prone to medical misidentifications and grammatical errors. This are unintentional and the practitioner does try to identify and correct these, but some could still be present. Please do not hesitate to contact practitioner for clarification. 08/02/2024 Cough (ICD-10 - R05.9) Lissa is a pleasant 54-year-old female the past medical history of hypothyroidism, anxiety, headache, history of H. pylori who presents to the office today for a 3-week history of an intermittent lingering cough. #Upper respiratory infection: Viral swab in office today cannot be performed due to supply shortage. Viral swab will be ran on Monday. Chest x-ray will be obtained due to the patient's cough duration, at this time reassuring that lung sounds are clear in the upper and lower lung lind bilaterally. Tessalon Perles sent to pharmacy today to be utilized as needed for cough, patient instructed to utilize these pills up to 3 times a day and they may cause drowsiness. #Anxiety: Continue escitalopram 20 mg #Hypothyroidism: Continue levothyroxine sodium 88 mcg tablets #GERD: Continue omeprazole 40 mg tablets once daily. All questions have been answered to patient's satisfaction. Patient verbalized understanding of diagnosis and treatments explained. Advised to call sooner prior to next visit it any questions/concerns arise. Case discussed with Yaya ECHEVERRIA who reviewed the assessment and plan. Chart, medications, labs, vital signs reviewed. Dictation was accomplished with the use of Souqalmal voice recognition software, which is prone to medical misidentifications and grammatical errors. This are unintentional and the practitioner does try to identify and correct these, but some could still be present. Please do not hesitate to contact practitioner for clarification. 11/28/2024 Breast cancer screening by mammogram (ICD-10 - Z12.31) 02/05/2025 Adult general medical exam (ICD-10 - Z00.00) 02/28/2025 Anxiety (ICD-10 - F41.9) Shagufta is [...] log exercise and discussed fitness Apps like Ajungo which can help keep log off calories [...] Dictation was accomplished with the use of Souqalmal voice recognition software, prone to medical misidentifications [...] next visit it any questions/concerns arise. 02/28/2025 General medical exam (ICD-10 - Z00.00) [...] log exercise and discussed fitness Apps like Ajung[employer] which can help keep log off calories [...] Dictation was accomplished with the use of Souqalmal voice recognition software, prone to medical misidentifications [...] next visit it any questions/concerns arise. 02/28/2025 Hypothyroidism, unspecified type (ICD-10 - E03.9) Shagufta is [...] log exercise and discussed fitness Apps like Ajungo which can help keep log off calories [...] Dictation was accomplished with the use of Souqalmal voice recognition software, prone to medical misidentifications and grammatical errors. This is unintentional and the practitioner does try to identify and correct these, but some could still be present. Please do not hesitate to contact practitioner for clarification. All questions answered to patients satisfaction. Patient verbalized understanding of diagnosis and treatments explained. To call sooner prior to next visit it any questions/concerns arise. 02/05/2025 Screening for diabetes mellitus (ICD-10 - Z13.1) 08/02/2024 Hypothyroidism, unspecified type (ICD-10 - E03.9) Lissa is a pleasant 54-year-old female the past medical history of hypothyroidism, anxiety, headache, history of H. pylori who presents to the office today for a 3-week history of an intermittent lingering cough. #Upper respiratory infection: Viral swab in office today cannot be performed due to supply shortage. Viral swab will be ran on Monday. Chest x-ray will be obtained due to the patient's cough duration, at this time reassuring that lung sounds are clear in the upper and lower lung lind bilaterally. Tessalon Perles sent to pharmacy today to be utilized as needed for cough, patient instructed to utilize these pills up to 3 times a day and they may cause drowsiness. #Anxiety: Continue escitalopram 20 mg #Hypothyroidism: Continue levothyroxine sodium 88 mcg tablets #GERD: Continue omeprazole 40 mg tablets once daily. All questions have been answered to patient's satisfaction. Patient verbalized understanding of diagnosis and treatments explained. Advised to call sooner prior to next visit it any questions/concerns arise. Case discussed with Yaya ECHEVERRIA who reviewed the assessment and plan. Chart, medications, labs, vital signs reviewed. Dictation was accomplished with the use of Souqalmal voice recognition software, which is prone to medical misidentifications and grammatical errors. This are unintentional and the practitioner does try to identify and correct these, but some could still be present. Please do not hesitate to contact practitioner for clarification. 05/06/2024 Degenerative tear of glenoid labrum of right shoulder (ICD-10 - M24.111) 05/06/2024 Encounter for screening for cardiovascular disorders (ICD-10 - Z13.6) # Palpitations: Holter monitor reviewed, did have episodic bradycardia that did correlate with some triggers. Will add stress test, as well as refer to cardiology # R shoulder pain. Did go to [employer] walk in, had a cortisone shot, wihtout relief. Difficulty with ROM, specifically adduction. MRI of shoulder will be added. Case discussed with collaborating physician Suhail Sainz who reviewed the assessment and plan. Chart, medications, labs, vital signs reviewed. Dictation was accomplished with the use of Souqalmal voice recognition software, prone to medical misidentifications and grammatical errors. This is unintentional and the practitioner does try to identify and correct these, but some could still be present. Please do not hesitate to contact practitioner for clarification. All questions answered to patients satisfaction. Patient verbalized understanding of diagnosis and treatments explained. To call sooner prior to next visit it any questions/concerns arise. 04/11/2024 Encounter for screening for cardiovascular disorders (ICD-10 - Z13.6) # Question hiatal hernia. Patient reports a gurgling sound in her chest. I suspect that this could be secondary to hiatal hernia. She has been eating more healthy foods, question quite a more gas. I will start her on a trial of 6 to 8 weeks of omeprazole 40 mg p.o. daily half hour before food. We will also add Gas-X as needed. Patient is okay to take Maalox if she needs to as well. Her thyroid levels were recently checked and were within normal limits. Giving that she was having a sensation in her chest, an EKG was done which was normal sinus rhythm with no ischemic changes. There is no PVCs. I will place a Holter monitor. She reports that she did download an johnathon and feels that her heart rate can be pretty variable. She denies any increased eructation or gas. She denies any abdominal pain. Patient is to call our office if symptoms change, she has associated diaphoresis, nausea, pain in the back. Case discussed with collaborating physician Anat Sainz who reviewed the assessment and plan. Chart, medications, labs, vital signs reviewed. Dictation was accomplished with the use of Souqalmal voice recognition software, prone to medical misidentifications and grammatical errors. This is unintentional and the practitioner does try to identify and correct these, but some could still be present. Please do not hesitate to contact practitioner for clarification. All questions answered to patients satisfaction. Patient verbalized understanding of diagnosis and treatments explained. To call sooner prior to next visit it any questions/concerns arise. 04/11/2024 GERD (gastroesophageal reflux disease) (ICD-10 - K21.9) # Question hiatal hernia. Patient reports a gurgling sound in her chest. I suspect that this could be secondary to hiatal hernia. She has been eating more healthy foods, question quite a more gas. I will start her on a trial of 6 to 8 weeks of omeprazole 40 mg p.o. daily half hour before food. We will also add Gas-X as needed. Patient is okay to take Maalox if she needs to as well. Her thyroid levels were recently checked and were within normal limits. Giving that she was having a sensation in her chest, an EKG was done which was normal sinus rhythm with no ischemic changes. There is no PVCs. I will place a Holter monitor. She reports that she did download an johnathon and feels that her heart rate can be pretty variable. She denies any increased eructation or gas. She denies any abdominal pain. Patient is to call our office if symptoms change, she has associated diaphoresis, nausea, pain in the back. Case discussed with collaborating physician Anat Sainz who reviewed the assessment and plan. Chart, medications, labs, vital signs reviewed. Dictation was accomplished with the use of Souqalmal voice recognition software, prone to medical misidentifications and grammatical errors. This is unintentional and the practitioner does try to identify and correct these, but some could still be present. Please do not hesitate to contact practitioner for clarification. All questions answered to patients satisfaction. Patient verbalized understanding of diagnosis and treatments explained. To call sooner prior to next visit it any questions/concerns arise. 05/06/2024 GERD (gastroesophageal reflux disease) (ICD-10 - K21.9) # Palpitations: Holter monitor reviewed, did have episodic bradycardia that did correlate with some triggers. Will add stress test, as well as refer to cardiology # R shoulder pain. Did go to [employer] walk in, had a cortisone shot, wihtout relief. Difficulty with ROM, specifically adduction. MRI of shoulder will be added. Case discussed with collaborating physician Suhail Sainz who reviewed the assessment and plan. Chart, medications, labs, vital signs reviewed. Dictation was accomplished with the use of Souqalmal voice recognition software, prone to medical misidentifications and grammatical errors. This is unintentional and the practitioner does try to identify and correct these, but some could still be present. Please do not hesitate to contact practitioner for clarification. All questions answered to patients satisfaction. Patient verbalized understanding of diagnosis and treatments explained. To call sooner prior to next visit it any questions/concerns arise. 08/02/2024 GERD (gastroesophageal reflux disease) (ICD-10 - K21.9) Lissa is a pleasant 54-year-old female the past medical history of hypothyroidism, anxiety, headache, history of H. pylori who presents to the office today for a 3-week history of an intermittent lingering cough. #Upper respiratory infection: Viral swab in office today cannot be performed due to supply shortage. Viral swab will be ran on Monday. Chest x-ray will be obtained due to the patient's cough duration, at this time reassuring that lung sounds are clear in the upper and lower lung lind bilaterally. Tessalon Perles sent to pharmacy today to be utilized as needed for cough, patient instructed to utilize these pills up to 3 times a day and they may cause drowsiness. #Anxiety: Continue escitalopram 20 mg #Hypothyroidism: Continue levothyroxine sodium 88 mcg tablets #GERD: Continue omeprazole 40 mg tablets once daily. All questions have been answered to patient's satisfaction. Patient verbalized understanding of diagnosis and treatments explained. Advised to call sooner prior to next visit it any questions/concerns arise. Case discussed with Yaya ECHEVERRIA who reviewed the assessment and plan. Chart, medications, labs, vital signs reviewed. Dictation was accomplished with the use of Souqalmal voice recognition software, which is prone to medical misidentifications and grammatical errors. This are unintentional and the practitioner does try to identify and correct these, but some could still be present. Please do not hesitate to contact practitioner for clarification. 02/05/2025 Screening for lipid disorders (ICD-10 - Z13.220) 02/28/2025 Depression, unspecified depression type (ICD-10 - [...] log exercise and discussed fitness Apps like Ajungo which can help keep log off calories [...] Dictation was accomplished with the use of Souqalmal voice recognition software, prone to medical misidentifications [...] next visit it any questions/concerns arise. 02/28/2025 Hyperlipidemia, mild (ICD-10 - E78.5) Shagufta is a 52 yo female pt with a pmhx of anxiety, hypothyroid, headaches, depression, arthritis of the neck, allergic dermatitis, ovarian failure here for CPE. She is currently not working. 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 Lives at home with and 2 daughters. [...] log exercise and discussed fitness Apps like Ajungo which can help keep log off calories [...] Dictation was accomplished with the use of Souqalmal voice recognition software, prone to medical misidentifications and grammatical errors. This is unintentional and the practitioner does try to identify and correct these, but some could still be present. Please do not hesitate to contact practitioner for clarification. All questions answered to patients satisfaction. Patient verbalized understanding of diagnosis and treatments explained. To call sooner prior to next visit it any questions/concerns arise. 02/05/2025 Screening for thyroid disorder (ICD-10 - Z13.29) 02/28/2025 Encounter for examination of blood pressure [...] log exercise and discussed fitness Apps like Ajungo which can help keep log off calories [...] Dictation was accomplished with the use of Souqalmal voice recognition software, prone to medical misidentifications and grammatical errors. This is unintentional and the practitioner does try to identify and correct these, but some could still be present. Please do not hesitate to contact practitioner for clarification. All questions answered to patients satisfaction. Patient verbalized understanding of diagnosis and treatments explained. To call sooner prior to next visit it any questions/concerns arise. 02/05/2025 Vitamin D deficiency (ICD-10 - E55.9) 02/28/2025 URI with cough and congestion (ICD-10 [...] log exercise and discussed fitness Apps like Ajungo which can help keep log off calories [...] Dictation was accomplished with the use of Souqalmal voice recognition software, prone to medical misidentifications [...] log exercise and discussed fitness Apps like Ajungo which can help keep log off calories [...] Dictation was accomplished with the use of Souqalmal voice recognition software, prone to medical misidentifications [...] Treatment Pending Test Test Name Order Date MRI : Shoulder, right 05/06/2024 Barium Swallow 04/11/2024 X ray : Shoulder, right 03/29/2024 X ray : Chest with 2 views 08/02/2024 Stool Culture 02/21/2023 Stool Culture -O&P 02/21/2023 MAMMOGRAM, SCREENING 12/04/2023 MAMMOGRAM, SCREENING 11/28/2024 CT Abdomen and Pelvis 10/26/2023 CT Abd and Pelvis w Contrast 10/26/2023 CT Chest w/o Contrast 08/11/2022 XR Chest 2 Views 03/14/2022 LIPID PANEL, STANDARD 02/21/2023 LIPID PANEL, STANDARD 02/05/2025 LIPID PANEL, STANDARD 02/22/2024 COMPREHENSIVE METABOLIC PANEL 02/22/2024 COMPREHENSIVE METABOLIC PANEL 02/05/2025 CBC (INCLUDES DIFF/PLT) 02/05/2025 CBC (INCLUDES DIFF/PLT) 02/22/2024 URINALYSIS, COMPLETE 02/22/2024 URINALYSIS, COMPLETE 02/05/2025 HEMOGLOBIN A1c 02/22/2024 T4, FREE 02/22/2024 T4 (THYROXINE), TOTAL 06/04/2021 TSH 06/04/2021 TSH 02/22/2024 T3, FREE 02/22/2024 T3, FREE 06/04/2021 VITAMIN D,25-OH,TOTAL,IA 02/05/2025 CLOSTRIDIUM DIFFICILE TOXIN/GDH W/REFL T O PCR 02/21/2023 US Breast Complete Henrik 02/26/2024 Hemoglobin [id number] 02/05/2025 TSH+T3+Free T4+T3 Free 02/05/2025 PPC Rapid Covid/Strep/Flu/RSV 02/28/2025 Next Appt Details Provider Name:MESERET PELLETIER, 08/26/2025 09:00:00 AM, [address], [place], [address], Insurance Providers Payer Name Payer Address Payer Phone Subscriber Number Group Number Insured Name Patient Relationship to Insured Coverage Start Date Coverage End Date [facility] [address] [place] [address] [id number] Lissa Irizarry Self - patient is the insured 0 Medical (General) History Medical History History ICD Code Hypothyroidism, unspecified E03.9 Anxiety F41.9 Headache R51 History of Helicobacter pylori infection Z86.19 Lung nodule R91.1 Surgical History Surgery Date(Month/Year) csection 2000 csection 2009 surgery left foot joint replacement surgery on right foot 2021 endoscopy 2024
--- OUTSIDE RECORDS SUMMARY | 2025-03-05 08:02 | XMS_ITS | Patient Health Record ---
Author Organization [facility] Address [address] [place] [address] Care Team Providers Care Professor Of Marketing Name Role Phone Mariangel White Primary Care Provider Unavailabl e Allergies Allergen (clinical drug ingredient) Drug/Non Drug Allergy documented on EMR Reaction Allergy Type Onset Date Status amoxicillin / clavulanate Augmentin Unknown Drug Allergy Active Reason For Referral No Information Medications Medication SIG (Take, Route, Frequency, Duration) Notes Start Date End Date Status hydrOXYzine HCl 25 MG 1 tablet as needed Orally every 8 hrs PRN itching/nausea; Duration: 10 days 07/28/2021 Not-Taking Ibuprofen 800 MG 1 tablet with food o r milk as needed Orally every 6 hrs; Duration: 30 days 07/28/2021 Not-Taking busPIRone HCl 15 MG 1 tablet Orally 1/2 tab daily Not-Taking oxyCODONE HCl 5 MG 1 tablet as needed Orally every 4 hours; Duration: 5 days 07/28/2021 Not-Taking TriNessa (28) 0.18/0.215/0.25 MG-35 MCG 1 tablet Orally Once a day Not-Taking Vitamin C Active Sulfamethoxazole-Trimethop rim 800-160 MG 1 tablet Orally Twice a day; Duration: 7 day(s) 04/23/2021 Not-Taking Acetaminophen 500 MG 1 tablet as needed Orally every 4 hrs; Duration: 30 days 07/28/2021 Not-Taking Levothyroxine Sodium 88 MCG 1 tablet in the morning on an empty stomach Orally Once a day Active clonazePAM 1 MG 1 tablet Orally bid prn Active DULoxetine HCl 40 MG 1 capsule Orally On ce a day Active oxyCODONE HCl 5 MG 1 tablet as needed Orally every 4 hrs; Duration: 5 days 03/01/2021 Not-Taking Multivitamin Active Ibuprofen 600 MG TAKE 1 TABLET BY MARYJANE TH EVERY 6 HOURS WITH FOOD OR MILK NEEDED; Duration: 30 Not-Taking hydrOXYzine HCl 25 MG 1 tablet as needed Orally every 8 hrs PRN nausea/itching; Duration: 10 days 03/01/2021 Not-Taking Problems Problem Type SNOMED Code ICD Code Onset Dates Problem Status W/U Status Risk Notes Problem Acquired hallux rigidus (5278475) Hallux rigidus, right foot (M20.21) Active confirmed Problem Acquired hallux rigidus (5416143) Hallux rigidus, left foot (M20.22) Active confirmed Problem Localized, primary osteoarthritis of the ankle and/or foot (544586293) Arthritis of first metatarsophalangeal (MTP) joint of left foot (M19.072) Active confirmed Problem Localized, primary osteoarthritis of the ankle and/or foot (174254385) Arthritis of first metatarsophalangeal (MTP) joint of right foot (M19.071) Active confirmed Plan Of Treatment Pending Test Test Name Order Date Basic Metabolic Panel (8) 11/04/2020 CBC 11/04/2020 X ray : Foot, left 3v 09/30/2020 X ray : Foot, left 3v 12/29/2021 X ray : Foot, left 3v 03/12/2021 X ray : Foot, left 3v 04/09/2021 X ray : Foot, left 3v 05/10/2021 X ray : Foot, left 3v 06/08/2021 X ray : Foot, right 3v 09/03/2021 X ray : Foot, right 3v 10/07/2021 X ray : Foot, right 3v 11/08/2021 X ray : Foot, right 3v 12/29/2021 X ray : Foot, right 3v 09/30/2020 DRAIN/INJECT, SMALL JOINT/BURSA 12/29/19 21 Insurance Providers Payer Name Payer Address Payer Phone Subscriber Number Group Number Insured Name Patient Relationship to Insured Coverage Start Date Coverage End Date [facility] [address] [place] [phone] [id number] Rosita Vasquez Self - patient is the insured Medications Administered Medication Instructions Date of Administration Dosage Notes Dexamethasone 12/28/2020 0.5 mL Kenalog 12/28/2020 0.5 mL Medical (General) History Medical History History ICD Code Hypothyroidism Chronic anxiety Liver mass 1.9 cm x 1.7 cm Chronic pelvic pain osteoarthritis (neck) Surgical History Surgery Date(Month/Year) left foot 1st metatarsophalangeal joint cheilectomy with implant 03/04/2021 right foot 1st metatarsophalangeal joint cheilectomy 08/03/2021 2000 2009 Hospitalization History Reason Date(Month/Year) (girl) 2009 (girl) 2000
--- OUTSIDE RECORDS SUMMARY | 2025-03-05 08:02 | XMS_ITS ---
Author Name [facility] Organization Unknown History of Medication Use Medication Directions Dispensed Refills Start Date End Date Stat us clonazepam 1 mg tablet TAKE 1 TABLET BY MOUTH UP TO TWICE DAILY NEEDED active escitalopram 20 mg tablet TAKE 1 TABLET BY MOUTH EVERY MORNING active lansoprazole 30 mg capsule,delayed release TAKE 1 CAPSULE BY MOUTH TWICE DAILY 30 MINUTES BEFORE A MEAL FOR 14 DAYS active levothyroxine 88 mcg tablet TAKE 1 TABLET BY MOUTH DAILY active tacrolimus 0.1 % topical ointment APPLY A THIN LAYER TOPICALLY TWICE DAILY TO RASH ON FACE NEEDED ITCH AND INFLAMMATIN active Allergies Allergen Reaction Severity Comment Documented Date Source Statu s AMOXICILLIN ENS_AONECT AUGMENTIN ENS_AONECT Problems Problem Status Onset Date Problem Type Date of Resoluti on Source Tendinitis of right rotator cuff active 2024-05-28 ProblemAct ENS_AONECT Encounters Encounter Type Encounter Reason Primary Diagnosis Location Date Ambulatory [facility] 10/25/2024 Ambulatory [facility] 05/29/2024 Ambulatory [facility] 05/28/2024 Ambulatory [facility] 05/28/2024 Ambulatory [facility] 05/27/2024 Ambulatory [facility] 05/27/2024 Ambulatory [facility] 05/27/2024 Ambulatory [facility] 05/15/2024
== END 2025-03-05 07:58 | disposition home or self-care (01) ==
LOC: HO.CT 07:57
PROVIDERS: PCP Physician Assistant Medical; Visit Provider Hospitalist
DX: R91.8 Other nonspecific abnormal finding of lung field (principal)
CPT/HCPCS: 71250

== ENCOUNTER → 2025-03-05 07:59 | Outpatient (BNV) | payer BC, SELFPAY | PROVIDERS: PCP Physician Assistant Medical; Visit Provider Family Medicine | DX: R91.8 Other nonspecific abnormal finding of lung field (principal) | CPT/HCPCS: 71250 ==

== ENCOUNTER 2025-03-24 08:24 | Outpatient (AMB) | payer BC, SELFPAY ==
--- NOTE | 2025-03-24 08:31 | A.OFFVIS_ITS ---
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 After COVID she started developing worsening respiratory symptoms with chest tightness and cough. She had imaging studies at some point demonstrating evidence of peribronchial coughing and bronchitis. The patient recovered from that in and then again in January 2022 she developed COVID again. Similar symptoms occurred. She started using inhalers. Then, in July 2022 the patient developed another upper respiratory illness although was not COVID. Resulting increasing chest tightness having to use inhalers. She did have imaging studies at [facility] initially demonstrating hazy nodular opacity. I personally reviewed that image. She then had a CT scan of the chest done demonstrating calcified pulmonary nodules consistent with granulomas about 5 mm in size. No evidence of any peribronchial coughing a bronchitis or any other changes based on the report. I did request that she can bring me a copy of the CD so I can not review the images. In view of the size of the nodules is more appropriate for her to get a CT scan follow-up in a year's time. She she does have allergy symptoms including postnasal drip and likely has atopy with allergic rhinitis, eczema and likely mild intermittent asthma. The patient does have a rescue inhaler. She does not need any maintenance therapies right now. She is already did not Singulair although she has been taking it regularly and she has also continue with her nasal therapy. Therefore she can continue with her current therapies will follow-up in the fall with PFTs. Hopefully have looked at her images by then and will decide if she needs a CT scan in the fall or if he can not wait to the spring. 04/17/2023 the patient has a telehealth visit today. Overall the patient is doing better. Her allergies have subsided and she is been able to deescalate her respiratory and allergy medicines. She did take a trip to [place] over the summer and she did have some increased respiratory symptoms while dealing with a viral syndrome. She is still having some GI sequela symptoms. She did not test to see if she had COVID. We did review her pulmonary function studies. It appears that her post bronchodilator numbers are significantly worse. Will go ahead and repeat that based on the fact that it does not go along with her history. In regards of her CT scan the patient does have a small 5 mm pulmonary nodule that will require a follow-up in August. will follow-up with her after that CT scan to review together. Otherwise, the patient can always call if any new issues arise. 09/18/2023 the patient is here for a pulmonary follow-up visit. Overall the patient has been doing well. Now that the seasons transitioning to the spring she is developing increasing allergy symptoms. The patient does have a rescue inhaler although she does not use it often Dupixent less than once a week. The patient did respond previously well to singular. Therefore will go ahead and send her the Singulair that she can use seasonally. Specially since spring is whenever were seasons. In addition to that she did have a CT scan of the chest to follow-up with the pulmonary nodules. I did personally review. I did measure her pulmonary nodules in a documented that to the nodules are actually measuring 6 mm in size. One of the nodules is hazy in appearance. We did look at the report from her previous CT scan from [facility] demonstrating that the nodules were only about 5 mm in size. In view of the interval increase in the pulmonary nodules will go ahead and repeat her CT scan in 6 months. If the patient develops any worsening symptoms prior to that she will call for an ea rlier assessment. 03/25/2024 the patient is here for a pulmonary follow-up visit. Overall the patient has been doing well. She is recovering from a cold. She did not need any prednisone which is reassuring. She does not use her rescue inhaler because it caused palpitations. She has had some fluttering sensations lately. She is going to get an EKG if her symptoms persist. We did look at her CT scan of the chest that she had back in 03/18/2024. It has not been officially read yet. I did review a compared to the CT scan that she had back in August. She has 1 nodule does resolve in the left upper lobe. All the other nodules are about the same. The left lower lobe nodule still measuring 6-7 mm in size. Does not look any different to me when looking at the thin cuts. Therefore I am here sure that we can follow in a year's time. However, will wait for the final read on the CT scan from Radiology to see if they feel any different. 03/24/2025 the patient is here for pulmonary follow-up visit. Overall the patient has been doing well. She continues use her inhalers as prescribed. Overall she is doing well though she does complain of a intermittent cough. Yjyn-jz-dlmofter severity. Tends to activate her asthma when she starts coughing. Sometimes she does have to use her rescue inhaler. And sometimes more than usual. But overall she is doing okay. The patient did have a CT scan of the chest which I personally reviewed. Pulmonary nodules appear to be the same. Whenever nodules in the left hemithorax as more of a subsolid hazy nodule. Therefore that will require longer follow-up. Will plan to follow-up CT scan in about 18 months. Will have her come back in a year and will decide then went to schedule her CT scan based on her symptoms and evaluation. [facility] Medical History (Updated 04/17/23 @ 22:00 by Jayant Owusu MD) Chronic allergic rhinitis Pulmonary nodules Atopy Reactive airway disease Hallux limitus of left foot Palpitations Mammogram normal Normal Pap smear Vitamin D deficiency Liver mass Chronic pelvic pain in female Chronic anxiety Annual physical exam Surgical History H/O colonoscopy Family History Father No problems noted. Mother No problems noted. Social History Housing: House Alcohol intake: current Alcohol intake frequency: holidays/special occasions only Patient Tobacco Use Status: Never used Tobacco e-Cigarette/Vaping Use: Never Used Second Hand Smoke Exposure: No service: No Current occupational status: unemployed Review of Systems Const Denies fatigue and Denies fever(s) Eyes Reports no additional complaints ENT Denies nasal congestion, Denies nasal discharge and Denies post nasal drip Card Denies chest pain Resp Reports cough and Denies wheezing GI Reports no additional complaints Musc Reports no additional complaints Skin/Breast Reports rash Neuro Reports no additional complaints Endo Denies fatigue Jameson/Lymph Denies lymphadenopathy Aller/Immun Denies wheezing Physical Exam Vital Signs: Last Vital Signs Pulse 74 03/24/25 08:32 BP 90/60 03/24/25 08:32 Pulse Ox 100 03/24/25 08:32 Oxygen Delivery Method Room Air 03/24/25 08:32 BMI result Body Mass Index 24.2 Const General: comfortable HEENT Head: Yes normocephalic Neck Neck: Yes supple Chest Chest palpation & inspection: normal inspection of the chest Resp Effort & Inspection: normal respiratory effort Auscultation: clear to auscultation bilaterally and no wheezes Cardio Rate: regular rate Rhythm: regular rhythm Heart sounds: S1 normal heart sound present and S2 normal heart sound present GI Palpation (GI): Soft to palpation Skin General skin exam: no rashes or lesions noted Extrem General: Yes no clubbing, cyanosis or edema Assessment & Plan Assessment & Plan (1) Reactive airway disease: Code(s): J45.909 - Unspecified asthma, uncomplicated Category: Medical Qualifiers: Asthma complication type: uncomplicated Asthma persistence: intermittent Asthma severity: mild Qualified Code(s): J45.20 - Mild intermittent asthma, uncomplicated (2) Atopy: Code(s): Z88.9 - Allergy status to unspecified drugs, medicaments and biological substances Category: Medical (3) Pulmonary nodules: Code(s): R91.8 - Other nonspecific abnormal finding of lung field Category: Medical (4) Chronic allergic rhinitis: Code(s): J30.9 - Allergic rhinitis, unspecified Category: Medical Plan start Symbicort RUBIO as needed fluticasone nasal spray AM Neti bottle PM as needed Zyrtec as needed Singulair PM seasonally tessalon pearls as needed for cough CT chest in 12-18 months F/U 1 yr Medications: New benzonatate 200 mg PO BID PRN 60 caps 6RF cough 30 days budesonide-formoterol 160-4.5 mcg/actuation (Breyna) 2 puffs inhalation BID 10.2 grams 11RF 30 days J44.89 - Other specified chronic obstructive pulmonary di sease Coding Level of Care Code Est Pt Level 4 (91786) Complex EM visit Add On G2211 Diagnoses Mild intermittent reactive airway disease without complication J45.20 Asthma complication type: uncomplicated Asthma persistence: intermittent Asthma severity: mild Atopy Z88.9 Pulmonary nodules R91.8 Chronic allergic rhinitis J30.9 Time Spent (min) 17
[2025-03-24 08:32] VITALS: BP 90/60; PULSE 74; O2SAT 100; BMI 24.2
--- OUTSIDE RECORDS SUMMARY | 2025-03-24 09:35 | XMS_ITS | Patient Health Record ---
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
--- OUTSIDE RECORDS SUMMARY | 2025-03-24 09:35 | XMS_ITS | Clinical Summary ---
Author Organization [facility] Address [address] [place] [address] Phone Care Team Providers Care X Ray Equipment Servicer Name Role Phone Susie Duarte Primary Care Provider [phone] Allergies Active Allergy Reactions Criticality Noted Date [...] checking a high-sensitivity CRP. She believes her test borer helper is already done these tests. We did [...] reflux disease) PONV (postoperative nausea and vomiting) [id number] Anxiety Arthritis Hypothyroidism Family History Medical History Relation Name Comments Ulcerative colitis Father Possible, patient not sure Heart attack Maternal Grandfather Yovani Coronary artery disease Mother Poss ible CAD s he has described having blockages Glaucoma Mother Heart attack Paternal Grandmother Had an ME in his 40s but ultimately in his [...] Team (Late st Contact Info) Description 03/25/2025 9:55 AM EDT Lab Draw Station - [address] [place] [id number] 03/25/2025 10:00 AM EDT Procedure visit Orthopedic Surgery - [place] [address] [place] [id number] Luci Armijo MD [address] [place] [address] Health Maintenance Due Date Last Done Comments [...] 2025 Colorectal Cancer Screening: Colonoscopy 04/23/2028 04/23/2018 RSV Immunization Adult Patients (1 - 1-dose 75+ series) 2044 HIB Vaccines Aged Out No longer eligi [...] Most Recently Relevant to Health Maintenance Insurance [facility] Care Teams X Ray Equipment Servicer Relationship Specialty Start Date End Date Susie Duarte PA [address] [place] [id number] PCP - General 12/29/23
== END 2025-03-24 08:56 | disposition home or self-care (01) ==
LOC: HO.HPS 08:24
PROVIDERS: PCP Physician Assistant Medical; Visit Provider Hospitalist
DX: J45.20 Mild intermittent asthma, uncomplicated (principal); Z88.9 Allergy status to unspecified drugs, medicaments and biological substances; R91.8 Other nonspecific abnormal finding of lung field; J30.9 Allergic rhinitis, unspecified
CPT/HCPCS: 99214